=== PATIENT | female | born 1950 | race Caucasian/White ===

== ENCOUNTER → 2017-02-17 | Outpatient (CLI) | payer OTHER ==
[~2017-02-17] MED LIST: ESTR0.3T PO; RISP2TAB22 PO
--- NOTE | 2017-02-17 16:06 | MAMMOGRAPHY REPORT ---
BILATERAL DIGITAL SCREENING MAMMOGRAM WITH CAD: 02/17/2017 TECHNIQUE: Current study was also evaluated with a Computer Aided Detection (CAD) system. Bilatera l CC and MLO views were obtained. COMPARISON: Comparison is made to exams dated: 02/12/2016 mammogram, 02/06/2015 mammogram, 01/24/2014 ma mmogram, 01/17/2014 mammogram, 01/11/2013 mammogram, and 01/06/2012 mammogram - [facility] nter. BREAST COMPOSITION: The tissue of both breasts is extremely dense, which lowers the sensitivity of mammography. FINDINGS: No suspicious masses, calcifications, or areas of architectural distortion are noted in e ither breast. There has been no significant interval change compared to prior exams. Bilateral mya gn-appearing calcifications are not significantly changed. IMPRESSION: ACR BI-RADS CATEGORY 2: BENIGN There is no mammographic evidence of malignancy. A 1 year screening mammogram is recommended. The p atient will receive written notification of the results. Approximately 10% of breast cancers are not detected with mammography. A negative mammographic repor t should not delay biopsy if a clinically suggestive mass is present. Liz Boo M.D. ah/:02/17/2017 15:54:09 Miniature Train Driver: Roxie REIS(Parmjit)(M), [facility] letter sent: Normal 1/2 BI-RADS Code: ACR BI-RADS Category 2: Benign
== END | disposition home or self-care (01) ==
LOC: C.MAMM 09:00
PROVIDERS: ATTEND Physician Assistant
DX: Z12.31 Encounter for screening mammogram for malignant neoplasm of breast (principal)

== ENCOUNTER → 2018-02-21 | Outpatient (CLI) | payer OTHER ==
--- NOTE | 2018-02-22 07:45 | MAMMOGRAPHY REPORT ---
BILATERAL DIGITAL SCREENING MAMMOGRAM TOMOSYNTHESIS WITH CAD: 02/21/2018 CLINICAL HISTORY: Routine screening. Patient has no complaints. TECHNIQUE: Breast tomosynthesis in addition to standard 2D mammography was performed. Current study was also evaluated with a Computer Aided Detection (CAD) system. COMPARISON: Comparison is made to exams dated: 02/17/2017 mammogram, 02/12/2016 mammogram, 02/06/2015 nina mogram, 01/24/2014 mammogram, 01/24/2014 ultrasound, and 01/17/2014 mammogram - [facility] nter. BREAST COMPOSITION: The tissue of both breasts is extremely dense, which lowers the sensitivity of m ammography. FINDINGS: There are possible faint clusters of microcalcifications in the medial right breast, for w hich additional spot magnification views are recommended. No suspicious masses, areas of architectural distortion or asymmetries are identified bilaterally. IMPRESSION: ACR BI-RADS CATEGORY 0: INCOMPLETE EVALUATION: NEED ADDITIONAL IMAGING EVALUATION The possible faint clusters of microcalcifications in the medial right breast need additional evaluat ion. The patient will be called to schedule an appointment. Approximately 10% of breast cancers are not detected with mammography. A negative mammographic report should not delay biopsy if a clinically suggestive mass is present. Rose Marie Colunga M.D. ay/:02/21/2018 16:05:49 Forest Fire Prevention Specialist: Yodit REIS(Parmjit)(Gregg), [facility] letter sent: Addl Imaging 0 BI-RADS Code: ACR BI-RADS Category 0: Incomplete Evaluation: Need Additional Imaging Evaluation
== END | disposition home or self-care (01) ==
LOC: C.MAMM 08:32
PROVIDERS: ATTEND Family Medicine
DX: Z12.31 Encounter for screening mammogram for malignant neoplasm of breast (principal); R92.0 Mammographic microcalcification found on diagnostic imaging of breast

== ENCOUNTER → 2018-03-03 | Outpatient (CLI) | payer OTHER ==
--- NOTE | 2018-03-03 14:45 | MAMMOGRAPHY REPORT ---
UNILATERAL RIGHT DIGITAL DIAGNOSTIC MAMMOGRAM: 03/03/2018 CLINICAL HISTORY: Callback from screening mammogram for right breast calcifications. TECHNIQUE: Spot magnification right cc and ML views were obtained. COMPARISON: Comparison is made to exams dated: 02/21/2018 mammogram, 02/17/2017 mammogram, 02/12/2016 ma mmogram, 02/06/2015 mammogram, 01/24/2014 mammogram, and 01/24/2014 ultrasound - [facility]ter. BREAST COMPOSITION: The tissue of the right breast is extremely dense, which lowers the sensitivity of mammography. FINDINGS: Spot magnification views of the right breast demonstrate an 8 mm group of faint punctate an d amorphous calcifications in the right upper inner quadrant, best seen on the cc view. The calcific ations were not clearly evident on prior exams and are therefore indeterminant. A possible smaller 3 mm cluster of similar appearing calcifications is seen slightly more medially on the cc view which m ay project superiorly on the MLO view. There is also a small 2 mm cluster of punctate benign-appeari ng calcifications within the right medial anterior breast at approximately 3:00, which are not signif icantly changed compared to multiple prior exams including the 2013 exam when accounting for technica l differences and are therefore likely benign. IMPRESSION: ACR BI-RADS CATEGORY 4: SUSPICIOUS 1. Grouped faint calcifications within the right upper inner quadrant are indeterminate and stereota ctic biopsy is recommended for further evaluation. 2. Pending benign pathology results, recommend follow-up diagnostic mammograms of the right breast i n 6 months to confirm stability of another possible smaller faint similar-appearing cluster more medi ally in the right breast and stable cluster of calcifications in the right 3:00 anterior breast. A phone call was made to the physician's office to confirm faxed results were received. The patient has been verbally notified of the results. She tentatively scheduled the biopsy [facility]. Approximately 10% of breast cancers are not detected with mammography. A negative mammographic report should not delay biopsy if a clinically suggestive mass is present. Liz Boo M.D. /:03/03/2018 08:49:33 Studio Artist: Yodit REIS(Parmjit)(Gregg), [facility] letter sent: Abnormal 4/5 BI-RADS Code: ACR BI-RADS Category 4: Suspicious
== END | disposition home or self-care (01) ==
LOC: C.MAMM 08:14
PROVIDERS: ATTEND Physician Assistant
DX: R92.1 Mammographic calcification found on diagnostic imaging of breast (principal)

== ENCOUNTER → 2018-03-23 | Outpatient (CLI) | payer OTHER ==
[~2018-03-23] MED LIST changes: +CYCL10TA6 PO; +PRM625 PO; +PROP80TA2 PO; +RIZA10TA18 PO
--- NOTE | 2018-03-23 08:35 | Discharge Instructions ---
Discharge Instructions Procedure Procedure Date: March 23, 2018. Reason for visit: Right Calcifications. Discharge Discharge Date: March 23, 2018. Discharge Diagnosis: post right breast stereotactic guided biopsy Instructions Activity Recommendations: Additional Limitations (see below) Return to School/Work: no limitations Recommended Home Diet: No Limitations Provider Instructions: ACTIVITY RECOMMENDATIONS: * No lifting, pushing, pulling or exercising the affected side for three days. RETURN TO SCHOOL/WORK: * You may return to work/school after the procedure, but do not perform any strenuous activities for 24 to 48 hours. MEDICATIONS: * Tylenol (two 325 mg) every four to six hours if needed for mild pain (if not allergic to Tylenol). DIET: * Resume previous diet. SPECIAL CARE INSTRUCTIONS: * Keep biopsy site dry for 24 hours. May shower after 24 hours, but do not soak (bathe) incision. * May remove Tegaderm (plastic patch) tomorrow AFTER showering. * Leave the steri-strips on for one week. Allow the steri-strips to fall off by themselves. If not off after one week, you may remove them. You may place a Bandaid crosswise over the strips, if desired. * Apply ice 10 minutes on and 10 minutes off as needed. * Wear a bra at bedtime to sleep more comfortably for 2-3 days. * Your referring physician should have the results after approximately 5 to 7 business days. * Call for unusual bleeding, fever, drainage, etc or if you have any questions call [phone] during normal business hours or after hours call Dr Colunga, . FOLLOW UP VISIT: Follow-up with Referring Physician as scheduled. Allergies Coded Allergies: No Known Allergies (Unverified , 12/23/11) Logan Garcia Recommendations: Call your doctor if: * Temperature above 101 degrees * Pain not relieved by pain medicine ordered * There is increased drainage or redness from any incision * You have any unanswered questions or concerns. Your Doctors Instructions noted above were prepared by provider Rose Marie Colunga. Patient Signature Section: Patient Instructions Signature Page Izabel Wilson Patient (or Guardian) Signature/Date: I have read and understand the instructions given to me by my caregivers. Caregiver/RN/Doctor Signature/Date: The above-named patient and/or guardian has received patient instructions on this date. + Original Patient Signature Page (only) stays with chart. Please make copy for patient.
--- NOTE | 2018-03-23 15:22 | MAMMOGRAPHY REPORT ---
STEREOTACTIC GUIDED BIOPSY RIGHT BREAST: 03/23/2018 CLINICAL HISTORY: Indeterminate 8 mm cluster of punctate and amorphous microcalcifications in the med ial right breast. Patient presents for stereotactic guided biopsy. COMPARISON: Comparison is made to exams dated: 03/03/2018 mammogram, 02/21/2018 mammogram, 02/17/2017 m ammogram, 02/12/2016 mammogram, 02/06/2015 mammogram, and 01/24/2014 mammogram - [facility]. PATIENT CONSENT: After explaining the risks, benefits and alternatives of the procedure to the patien t, informed consent was obtained both verbally and in writing. Specific risks include: Bleeding, inf ection, puncture of adjacent structure, pain, nontarget biopsy, sampling error, metal allergy and med ication reaction. PROCEDURE DESCRIPTION: A time-out was performed and the right breast was confirmed as the site of bio psy. The patient was placed prone on the stereotactic biopsy table and the breast was placed in CC fr om above compression. A data systems analyst image was obtained that demonstrated the clustered microcalcifications in question. They are amenable to sterotactic biopsy. Then +15 and -15 stereo pair images were obt ained. The calcifications were targeted utilizing the coordinates obtained by the computer. The skin was prepped with Betadine. 1% Lidocaine with and without epinipherine was administered as local anes thesia. A small skin incision was made. Through the incision, the needle was inserted to the depth d etermined by the computer. 12 samples were obtained using a [employer] 9-gauge vacuum-assisted biops y device. The specimen radiograph demonstrated several architectural representative microcalcifications, therefore, a metallic marker was placed at the biopsy site. There was no immediate complication. Hemostasis was achieved after several minutes of manual compression. The samples were sent to pathology in two jacklyn ropriately labeled containers, "with calcifications" and "without calcifications". All of the samples were obtained from the same single biopsy site. Postprocedure CC and ML chrystal views of the right breast were obtained. There is a new dumbbell-shape d biopsy marker clip and 2 cm diameter hematoma at the site of the biopsy in the upper inner middle o ne third of the right breast, at the site of the biopsied clustered calcifications. IMPRESSION: STEREOTACTIC GUIDED BIOPSY Status post right breast stereotactic guided biopsy of faint clustered amorphous and punctate microca lcifications in the upper inner middle one third of the right breast, with biopsy marker clip placed at the site. Pending benign pathology results, a follow-up right mammogram is recommended in [address] ability of other smaller non-biopsied microcalcifications also in the right breast. The patient will receive notification of the biopsy results from her referring physician. Rose Marie Colunga M.D. ay/:03/23/2018 08:54:23 Wire Drawing Machine Tender: Roxie Garcia, [facility]
--- NOTE | 2018-03-23 15:26 | MAMMOGRAPHY REPORT ---
UNILATERAL RIGHT DIGITAL DIAGNOSTIC MAMMOGRAM TOMOSYNTHESIS: 03/23/2018 CLINICAL HISTORY: Status post right breast stereotactic guided biopsy of a faint 8 mm grouping of pun ctate/amorphous microcalcifications in the medial breast. Please refer the report from right breast stereotactic guided biopsy performed at the same time for f ull detail. IMPRESSION: POST PROCEDURE IMAGING FOR MARKER PLACEMENT Please refer the report from right breast stereotactic guided biopsy performed at the same time for f ull detail. Approximately 10% of breast cancers are not detected with mammography. A negative mammographic report should not delay biopsy if a clinically suggestive mass is present. Rose Marie Colunga M.D. ay/:03/23/2018 08:34:09 Money Order Clerk: Roxie Garcia, [facility] BI-RADS Code: Post Procedure Imaging For Marker Placement
== END | disposition home or self-care (01) ==
LOC: C.MAMM 07:53
PROVIDERS: ATTEND Physician Assistant
DX: R92.0 Mammographic microcalcification found on diagnostic imaging of breast (principal)

== ENCOUNTER 2018-03-24 00:04 | Emergency (ER) | payer OTHER ==
[~2018-03-24] VITALS: Ht 154.9 cm; Wt 69.0 kg
[~2018-03-24 00:04] MED LIST changes: -CYCL10TA6 PO; -PRM625 PO; -PROP80TA2 PO; -RIZA10TA18 PO
[2018-03-24 00:13] VITALS: TEMP 36.5; Ht 154.9 cm; Wt 69.0 kg
--- NOTE | 2018-03-24 00:40 | EMERGENCY ROOM VISIT NOTE ---
History Report prepared by Yogi: Keshav Sanabria Under the Supervision of: Dr. Rachel Ferraro D.O. First contact with patient: 00:19 Chief Complaint: SHOULDER PAIN Stated Complaint: LFT SHOULDER AND NECK PAIN,DISLOCATED?,CAN'T SLEEP History of Present Illness The patient is a 67 year old female who presents to the Emergency Room with complaints of persistent left neck pain radiating to her left shoulder for three days. She notes that she was carrying a bucket of fertilizer a couple of days ago when this started. She notes that she felt bad three days ago and was seen by her chiropractor two days ago. She notes that she felt better immediately after her chiropractor adjusted her, though by the time she got to her car her pain returned and worsened throughout the day. She notes that she cannot sleep. She notes sitting in an upright position worsens her pain. She states that she took two Tylenol yesterday. She had a biopsy performed on her right breast this morning. She has not taken any pain medication today. She denies any blood thinner use. Source of History: patient Onset: three days ago Position: neck (left ) Quality: other (radiating to her left shoulder) Timing: other (persistent) Modifying Factors (Worsening): other (sitting) Note: Notes loss of sleep. Review of Systems See HPI for pertinent positives & negatives. A total of 10 systems reviewed and were otherwise negative. Past Medical & Surgical Surgical Problems: (1) H/O right breast biopsy (2) H/O right knee surgery (3) H/O: hysterectomy (4) S/P foot surgery, left Family History Cancer Social History Smoking Status: Never Smoker Smokeless Tobacco Use: No Alcohol Use: none Drug Use: none Marital Status: Housing Status: lives with significant other Occupation Status: unemployed Current/Historical Medications Scheduled Cyclobenzaprine Hcl (Flexeril), 10 MG PO TID Estrogens, Conjugated (Premarin), 0.625 MG PO DAILY Propranolol (Inderal), 40 MG PO BID Risperidone (Risperdal), 2 MG PO QPM Rizatriptan Benzoate (Maxalt), 10 MG PO PRN/UD Allergies Coded Allergies: No Known Allergies (Unverified , 12/23/11) Physical Exam Vital Signs Date Time Temp Pulse Resp B/P (MAP) Pulse Ox O2 Delivery O2 Flow Rate FiO2 03/24/18 02:02 82 16 168/94 98 03/24/18 00:13 36.5 68 20 164/97 96 Room Air Physical Exam HEENT: Head - normocephalic and atraumatic Pupils are equal, round, and reactive to light. Extraocular eye muscles are intact, and sclera are anicteric. Nose - moist nasal mucosa without discharge. Mouth - moist buccal mucosa. Oropharynx is nonerythematous and there is no tonsillar exudate or edema noted. Neck: Supple; no JVD, nuchal rigidity, cervical lymphadenopathy. Significant muscle spasm of left cervical paraspinous muscles Heart: Regular rate and rhythm. There is a normal S1 and S2 with no murmurs, clicks, or gallops appreciated. Lungs: Clear to auscultation bilaterally with no wheezes, rales, or rhonchi. Abdomen: Soft, completely nontender, nondistended, with good bowel sounds. There are no palpable pulsatile masses or hepatosplenomegaly. There is no guarding, rigidity, or rebound noted. Extremities: No evidence of cyanosis, clubbing, or edema. There are easily palpable peripheral pulses. Significant muscle spasm of the entire left trapezius muscle. Skin: warm and dry with good turgor. psoriasis along hairline near occiput. Medical Decision & Procedures Medications Administered Medications (Trade) Dose Ordered Sig/Jr Route Start Time Stop Time Status Last Admin Dose Admin Ketorolac Tromethamine (Toradol Inj) 60 mg NOW STAT IM 03/24/18 00:46 03/24/18 00:47 DC 03/24/18 00:53 60 MG Cyclobenzaprine HCl (Flexeril Tab) 10 mg NOW STAT PO 03/24/18 00:46 03/24/18 00:47 DC 03/24/18 00:52 10 MG Procedure 0046: Ordered Flexeril 10 mg PO and Toradol 60 mg IM ED Course 0026: Past medical records reviewed. The patient was evaluated in room A11B. A complete history and physical exam was performed. 0046: Ordered Flexeril 10 mg PO and Toradol 60 mg IM 0124: I reassessed the patient at this time. She notes her pain is significantly relieved. 0147: I reassessed the patient at this time. She is feeling better and resting comfortably. I discussed the results and treatment plan with the patient. I answered all pertaining questions that she had. She expressed understanding and verbalized agreement. The patient will be discharged home. Medical Decision The patient is a 67 year old female who presents to the ED with neck pain. Differential diagnosis includes muscle spasm of trapezius muscle, cervical dysfunction, tendonitis in shoulder, and shoulder separation. This is a 67-year-old female patient presents to the emergency department with left-sided shoulder pain and neck pain. The patient has obvious significant muscle spasm of the trapezius muscle on the left. The patient has range of motion in that shoulder and therefore I do not suspect a dislocation. The patient does not have a mechanism for a shoulder separation. I have encouraged the patient to use NSAIDs at home for pain and I will prescribe Flexeril. She is to follow-up with her PCP if the symptoms persist. Medication Reconcilliation Current Medication List: was personally reviewed by me Blood Pressure Screening Patient's blood pressure: Elevated blood pressure Blood pressure disposition: Elevated BP felt to be situational Impression Primary Impression: Strain of left trapezius muscle Scribe Attestation The scribe's documentation has been prepared under my direction and personally reviewed by me in its entirety. I confirm that the note above accurately reflects all work, treatment, procedures, and medical decision making performed by me. Departure Information Dispostion Home / Self-Care Prescriptions Cyclobenzaprine Hcl (FLEXERIL) 10 Mg Tab 10 MG PO TID, #21 TAB Prov: Rachel Ferraro D.O. 03/24/18 Referrals Matthew Hampton M.D. (PCP) Forms HOME CARE DOCUMENTATION FORM, IMPORTANT VISIT INFORMATION Patient Instructions Muscle Spasm, Muscles Neck, My [facility] Additional Instructions Rest Take motrin - 600mg every 6 hours with food for pain Flexeril - 1 tab. every 8 hours Apply heat to the left shoulder You cannot drive while taking the muscle relaxant Problem Qualifiers Primary Impression: Strain of left trapezius muscle Encounter type: initial encounter Qualified Codes: S46.812A - Strain of other muscles, fascia and tendons at shoulder and upper arm level, left arm, initial encounter
[2018-03-24] MEDS ORDERED: CYCLOBENZAPRINE HCL 10 MG TAB PO STA (00:46)
[2018-03-24] MEDS ORDERED: KETOROLAC TROMETHAMINE 60 MG/2 ML VIAL IM STA (00:46)
[2018-03-24] MEDS ORDERED: PRM625 PO (01:38)
[2018-03-24] MEDS ORDERED: PROP80TA2 PO (01:40)
[2018-03-24] MEDS ORDERED: RIZA10TA18 PO (01:41)
[2018-03-24] MEDS ORDERED: CYCL10TA6 PO (01:55)
[2018-03-24 02:02] VITALS: BP 168/94; PULSE 82; O2SAT 98
== END 2018-03-24 02:03 | disposition home or self-care (01) ==
LOC: C.EDB 00:06 → C.EDA 02:03
DX: S46.812A Strain of other muscles, fascia and tendons at shoulder and upper arm level, left arm, initial encounter (principal); X50.0XXA Overexertion from strenuous movement or load, initial encounter; Z79.899 Other long term (current) drug therapy

== ENCOUNTER 2021-04-21 05:03 | Observation (INO) ==
[2021-04-21 05:34] LABS: Basophils # (auto) 0.02 K/uL (0-0.2); Basophils % (auto) 0.2 %; Eosinophils # (auto) 0.04 K/uL (0-0.5); Eosinophils % (auto) 0.5 %; Hematocrit (blood only) 38.8 % (37-47); Hemoglobin 13.4 g/dL (12.0-16.0); Immature Granulocytes # (auto) 0.01 K/uL (0.00-0.02); Immature Granulocytes % (auto) 0.1 %; Lymphocytes # (auto) 3.28 K/uL (1.2-3.4); Lymphocytes % (auto) 40.9 %; Mean Corpuscular Hemoglobin 33.3 pg (25-34); Mean Corpuscular Hgb Conc 34.5 g/dL (32-36); Mean Corpuscular Volume 96.5 fL (80-100); Mean Platelet Volume 9.8 fL (7.4-10.4); Monocytes # (auto) 0.65 K/uL (0.11-0.59); Monocytes % (auto) 8.1 %; Neutrophils # (auto) 4.02 K/uL (1.4-6.5); Neutrophils % (auto) 50.2 %; Platelet Count 191 K/uL (130-400); RDW Coefficient of Variation 12.2 % (11.5-14.5); RDW Standard Deviation 43.2 fL (36.4-46.3); Red Blood Count 4.02 M/uL (4.2-5.4); White Blood Count 8.02 K/uL (4.8-10.8)
[2021-04-21 05:44] LABS: Partial Thromboplastin Time 25.5 Seconds (21.0-31.0)
[2021-04-21 06:09] LABS: Alanine Aminotransferase 76 U/L (12-78); Albumin Globulin Ratio 0.9 (0.9-2); Albumin Level 3.3 gm/dl (3.4-5.0); Alkaline Phosphatase 82 U/L (45-117); Aspartate Aminotransferase 136 U/L (15-37); BUN Creatinine Ratio 23.7 (10-20); Bilirubin,Total 0.5 mg/dl (0.2-1); Blood Urea Nitrogen 18 mg/dl (7-18); Calcium 8.7 mg/dl (8.5-10.1); Carbon Dioxide 29 mmol/L (21-32); Chloride 105 mmol/L (98-107); Creatinine Clr Calc Pharmacy 63.5 ml/min; Est GFR (African American) 94.3 ml/min; Est GFR (Non-African American) 81.3 ml/min; Globulin 3.8 gm/dl (2.5-4.0); Glucose 99 mg/dl (70-99); Lipase 80 U/L (73-393); Potassium 4.4 mmol/L (3.5-5.1); Sodium 140 mmol/L (136-145); Total Protein 7.1 gm/dl (6.4-8.2); Troponin I < 0.015 ng/ml (0-0.045)
--- NOTE | 2021-04-21 06:40 | Ultrasound Report ---
US gallbladder CLINICAL HISTORY: Right upper quadrant abdominal pain. COMPARISON STUDY: No previous studies for comparison. FINDINGS: There is coarsening of hepatic echotexture. No hepatic lesions are identified. There is mil d intra and extrahepatic biliary ductal dilatation. The common bile duct measures 9 mm in caliber. Th ere are gallstones within the gallbladder. Gallbladder is distended. Sonographic Andrews sign could no t be assessed in this patient. Gallbladder wall is slightly thickened with possible gallbladder wall edema. Echogenic foci with comet tail artifact within the gallbladder wall suggests adenomyomatosis. Pancreas is obscured. There is no right hydronephrosis. IMPRESSION: 1. Cholelithiasis, mild gallbladder distention and mild gallbladder wall thickening. Acute cholecysti tis cannot be excluded. A hepatobiliary scan could be obtained if indicated. 2. Mild intra and extrahepatic biliary ductal dilatation. Correlation with liver function tests is re commended. 3. Coarsening of hepatic echotexture which raises the possibility of diffuse liver disease. ACT 112: Negative or not required by law. Electronically signed by: Alonzo Tijerina M.D. 04/21/2021 6:39 AM
--- NOTE | 2021-04-21 06:41 | XRay Report ---
XR chest 1V portable CLINICAL HISTORY: Chest Pain COMPARISON STUDY: Chest radiograph the 2009. FINDINGS: Lung volumes are normal. Lungs are clear. There is no pneumothorax or pleural effusion. Car diac size is normal. Mediastinal contours are normal. There is no evidence for pulmonary edema. IMPRESSION: No acute cardiopulmonary findings. ACT 112: Negative or not required by law. Electronically signed by: Alonzo Tijerina M.D. 04/21/2021 6:39 AM
[2021-04-21] MEDS ORDERED: SODIUM CHLORIDE 0.9% 500 ML IV SCH (08:00)
--- NOTE | 2021-04-21 08:04 | Emergency Department Note ---
Impression & Plan Epigastric abdominal pain ED Provider Note NAME: CORINE OLIVARES AGE: 70 SEX: F ARRIVES VIA: Walk-In INFORMANT: Patient ED PROVIDER(S): Rachel Ferraro DO CHIEF COMPLAINT: Abdominal pain PLAN: Disposition: Evaluation for inpatient care by the [facility] service Condition: Stable MEDICAL DECISION MAKING: This is a 70-year-old female patient who presents to the emergency department with epigastric abdominal pain. Laboratory studies were unremarkable. Right upper quadrant ultrasound shows gallbladder wall thickening and some concerns for possible acute cholecystitis. Patient symptoms have resolved but the ultrasound is questionably concerning for acute cholecystitis. Her symptoms seem to wax and wane. I discussed the case with the [facility] service and they will evaluate the patient for further inpatient care and order a HIDA scan. Triage Nursing notes reviewed and agree with them. Vital Signs: reviewed and remarkable for hypertension Differential diagnosis: Pancreatitis, cholecystitis, GERD, aortic dissection, ulcerative disease Diagnostics interpreted by me: ECG: Sinus bradycardia at [address] segment elevation or signs of ischemia. QTC was 416 ms. Cardiac Monitoring: Normal sinus rhythm at a rate of 72 Laboratory studies: See below Imaging studies: As per my interpretation Portable chest x-ray: No acute pulmonary infiltrates or consolidation Right upper quadrant ultrasound: See below HPI: 70/F arrives for evaluation of epigastric abdominal pain. Between 11 PM and midnight, the patient developed some chest discomfort and epigastric abdom inal pain. She initially noticed that she had had a headache earlier in the evening but quickly developed this epigastric abdominal pain. She tried to have a bowel movement but this seemed to make the epigastric pain and right upper quadrant abdominal pain worse. She describes the pain is fairly intense and severe but then she tried to go to sleep. Around 4 AM she noticed the pain again but it was much less severe. Because the pain was still present, she decided to come in for evaluation. Patient denies ever having pain like this in the past. She does describe some associated nausea. ROS: See above HPI for pertinent positives & negatives. A total of 10 systems reviewed and were otherwise negative. PAST MEDICAL HISTORY:None PAST SURGICAL HISTORY:Hysterectomy; multiple orthopedic surgeries FAMILY HISTORY:See Below SOCIAL HISTORY:See Below HOME MEDICATIONS:See list ALLERGIES:None VITALS:See Below PHYSICAL EXAMINATION: HEENT: Head - normocephalic and atraumatic Pupils are equal, round, and reactive to light. Extraocular eye muscles are intact, and sclera are anicteric. Nose - moist nasal mucosa without discharge. Mouth - moist buccal mucosa. Oropharynx is nonerythematous and there is no tonsillar exudate or edema noted. Neck: Supple; no JVD, nuchal rigidity, cervical lymphadenopathy, or auscultated bruits. Heart: Regular rate and rhythm. There is a normal S1 and S2 with no murmurs, clicks, or gallops appreciated. Lungs: Clear to auscultation bilaterally with no wheezes, rales, or rhonchi. Abdomen: Moderate tenderness to palpation in the epigastrium. There were normal bowel sounds. There is no guarding or rigidity noted. Extremities: No evidence of cyanosis, clubbing, or edema. There are easily palpable peripheral pulses. Skin: warm and dry with good turgor and no rashes. ED COURSE: Times/Reassessments: 0530: The patient was evaluated in room A 12. A complete history and physical was performed. An order was placed for continuous cardiac monitoring. The patient was in a normal sinus rhythm at a rate of 72. An IV lock was initiated and labs were drawn as above. A twelve-lead EKG was obtained as described above. The patient declined wanting any pain medications at this time. She will go for ultrasound of the right upper quadrant to evaluate her gallbladder. Ultrasound was performed and was concerning for gallbladder wall thickening. They recommended a HIDA scan. The patient remains comfortable at this time but her symptoms do wax and wane at times. [facility] will evaluate for further inpatient management and order the HIDA scan. Covid testing was ordered. The patient was placed on a normal saline drip. Rachel Ferraro DO Past Med/Surg History Medical History Migraines Paranoid schizophrenia Surgical History H/O right breast biopsy H/O right knee surgery H/O: hysterectomy S/P foot surgery, left Family History Sister Colorectal cancer Father Pancreatic cancer Social History (Updated 04/21/21 @ 09:20 by DEBORAH Adams) Smoking Status: Never smoker Hx Alcohol Use: No Hx Substance Use: No Preferred Language: Mauritanian Communication Ability: Effective Automatic Packer Operator Required: No Beliefs That Will Affect Care: None Current Living Situation: Spouse Other Information That Helps Us Care for You: No Feels Safe at Home: Yes Safety Concerns: Feels Safe At This Time Assistive Devices: Glasses Allergies Allergies Allergy/AdvReac Type Severity Reaction Status Date / Time No Known Allergies Verified 04/21/21 07:30 Home Meds Home Medications Medication Instructions Recorded Confirmed propranolol 40 mg tablet 40 mg PO BID 09/28/19 04/21/21 risperidone 2 mg tablet 2 mg PO DAILY 09/28/19 04/21/21 rizatriptan 10 mg tablet 10 mg PO Q2H PRN 09/28/19 04/21/21 conjugated estrogens [Premarin] 0.15 mg PO DAILY 04/21/21 04/21/21 Results & Data (ED) Vital Signs Vital Signs - 24 hr 04/21/21 05:11 04/21/21 05:23 04/21/21 05:24 Temperature 37.1 C Temperature Source Temporal Artery Scan Pulse Rate 63 56 L Pulse Rate from SpO2 Sensor Respiratory Rate 18 20 Respiratory Effort / Characteristics Non-Labored Spontaneous Respiratory Depth Normal Respiratory Pattern Regular Blood Pressure 166/92 H 173/86 H Blood Pressure Mean 116 115 Blood Pressure Position Sitting Pulse Oximetry 98 97 98 Oxygen Delivery Method Room Air Room Air Room Air Sepsis Recent Fever Within 48 Hours No Sepsis New/Unexplained Change in Mental Status No Sepsis Action Taken by Nursing No Action Required 04/21/21 05:31 04/21/21 05:37 04/21/21 07:01 Temperature Temperature Source Pulse Rate 56 L 53 L Pulse Rate from SpO2 Sensor 57 L 53 L Respiratory Rate 21 20 Respiratory Effort / Characteristics Respiratory Depth Respiratory Pattern Blood Pressure 162/83 H 189/96 H Blood Pressure Mean 109 127 Blood Pressure Position Pulse Oximetry 97 97 95 Oxygen Delivery Method Room Air Room Air Sepsis Recent Fever Within 48 Hours Sepsis New/Unexplained Change in Mental Status Sepsis Action Taken by Nursing 04/21/21 07:31 04/21/21 08:01 Temperature Temperature Source Pulse Rate 70 65 Pulse Rate from SpO2 Sensor 69 64 Respiratory Rate 17 17 Respiratory Effort / Characteristics Respiratory Depth Respiratory Pattern Blood Pressure 136/86 Blood Pressure Mean 102 Blood Pressure Position Pulse Oximetry 96 98 Oxygen Delivery Method Sepsis Recent Fever Within 48 Hours Sepsis New/Unexplained Change in Mental Status Sepsis Action Taken by Nursing Laboratory Data Result diagrams: 04/21/21 05:24 04/21/21 05:24 Lab Results 04/21/21 04/21/21 04/21/21 Range/Units 05:24 05:24 05:24 WBC 8.02 (4.8-10.8) K/uL RBC 4.02 L (4.2-5.4) M/uL Hgb 13.4 (12.0-16.0) g/dL Hct 38.8 (37-47) % MCV 96.5 (80-100) fL MCH 33.3 (25-34) pg MCHC 34.5 (32-36) g/dL RDW Std Deviation 43.2 (36.4-46.3) fL RDW Coeff of Margot 12.2 (11.5-14.5) % Plt Count 191 (130-400) K/uL MPV 9.8 (7.4-10.4) fL Immature Gran % (Auto) 0.1 % Neut % (Auto) 50.2 % Lymph % (Auto) 40.9 % [place] % (Auto) 8.1 % Eos % (Auto) 0.5 % Baso % (Auto) 0.2 % Neut # (Auto) 4.02 (1.4-6.5) K/uL Lymph # (Auto) 3.28 (1.2-3.4) K/uL [place] # (Auto) 0.65 H (0.11-0.59) K/uL Eos # (Auto) 0.04 (0-0.5) K/uL Baso # (Auto) 0.02 (0-0.2) K/uL Immature Gran # (Auto) 0.01 (0.00-0.02) K/uL APTT 25.5 (21.0-31.0) Seconds PTT Ratio 1.0 Sodium 140 (136-145) mmol/L Potassium 4.4 (3.5-5.1) mmol/L Chloride 105 (98-107) mmol/L Carbon Dioxide 29 (21-32) mmol/L Anion Gap 6.0 (3-11) BUN 18 (7-18) mg/dl Creatinine 0.75 (0.6-1.2) mg/dl Est Cr Clr Drug Dosing 63.5 ml/min Est GFR ( Amer) 94.3 ml/min Est GFR (Non-Af Amer) 81.3 ml/min BUN/Creatinine Ratio 23.7 H (10-20) Glucose 99 (70-99) mg/dl Calcium 8.7 (8.5-10.1) mg/dl Total Bilirubin 0.5 (0.2-1) mg/dl AST 136 H (15-37) U/L ALT 76 (12-78) U/L Alkaline Phosphatase 82 (45-117) U/L Troponin I < 0.015 (0-0.045) ng/ml Total Protein 7.1 (6.4-8.2) gm/dl Albumin 3.3 L (3.4-5.0) gm/dl Globulin 3.8 (2.5-4.0) gm/dl Albumin/Globulin Ratio 0.9 (0.9-2) Lipase 80 (73-393) U/L Specimen Hemolysis Administered Medications Carbamide Peroxide (Carbamide Peroxide 6.5% 15 Ml Btl) 5 drops OT BID PRN PRN Reason: Ear wax Stop: 04/24/21 11:53 Last Admin: 04/21/21 12:58 Dose: 5 drops Documented by: [id number] Dextrose/Sodium Chloride (D5w And Nss) 1,000 mls @ 125 mls/hr IV .Q8H MEGHAN Stop: 05/21/21 11:26 Last Infusion: 04/21/21 15:49 Dose: 125 mls/hr Documented by: [id number] Infusion: 04/21/21 14:49 Dose: 0 mls/hr Documented by: [id number] Admin: 04/21/21 12:46 Dose: 125 mls/hr Documented by: [id number] Cefoxitin Sodium 2,000 mg/ (Dextrose) 60 mls @ 100 mls/hr IV Q6H MEGHAN Stop: 05/01/21 12:14 Last Infusion: 04/21/21 19:06 Dose: 0 mls/hr Documented by: [id number] Admin: 04/21/21 18:30 Dose: 100 mls/hr Documented by: [id number] Infusion: 04/21/21 13:26 Dose: 0 mls/hr Documented by: [id number] Admin: 04/21/21 12:50 Dose: 100 mls/hr Documented by: [id number] Metronidazole (Flagyl) 500 mg in 100 mls @ 100 mls/hr IV Q8H MEGHAN Stop: 05/01/21 13:59 Last Infusion: 04/21/21 15:49 Dose: 0 mls/hr Documented by: [id number] Admin: 04/21/21 14:49 Dose: 100 mls/hr Documented by: [id number] Propranolol HCl (Propranolol Hcl 20 Mg Tab) 40 mg PO BID MEGHAN Stop: 05/21/21 11:26 Last Admin: 04/21/21 12:52 Dose: 40 mg Documented by: [id number] Risperidone (Risperidone 2 Mg Tablet) 2 mg PO DAILY MEGHAN Stop: 05/21/21 11:26 Last Admin: 04/21/21 12:52 Dose: 2 mg Documented by: [id number] Discontinued Medications Sodium Chloride (Nss) 500 mls @ 125 mls/hr IV .Q4H MEGHAN Stop: 05/21/21 07:59 Last Infusion: 04/21/21 11:28 Dose: 0 mls/hr Documented by: [id number] Admin: 04/21/21 08:15 Dose: 125 mls/hr Documented by: [id number] Imaging Data Radiologist's Impression: Chest X-Ray 04/21/21 05:28 XR chest 1V portable CLINICAL HISTORY: Chest Pain COMPARISON STUDY: Chest radiograph the 2009. FINDINGS: Lung volumes are normal. Lungs are clear. There is no pneumothorax or pleural effusion. Cardiac size is normal. Mediastinal contours are normal. There is no evidence for pulmonary edema. IMPRESSION: No acute cardiopulmonary findings. ACT 112: Negative or not required by law. Electronically signed by: Alonzo Tijerina M.D. 04/21/2021 6:39 AM Gallbladder Ultrasound 04/21/21 05:43 US gallbladder CLINICAL HISTORY: Right upper quadrant abdominal pain. COMPARISON STUDY: No previous studies for comparison. FINDINGS: There is coarsening of hepatic echotexture. No hepatic lesions are identified. There is mild intra and extrahepatic biliary ductal dilatation. The common bile duct measures 9 mm in caliber. There are gallstones within the gallbladder. Gallbladder is distended. Sonographic Andrews sign could not be assessed in this patient. Gallbladder wall is slightly thickened with possible gallbladder wall edema. Echogenic foci with comet tail artifact within the gallbladder wall suggests adenomyomatosis. Pancreas is obscured. There is no right hydronephrosis. IMPRESSION: 1. Cholelithiasis, mild gallbladder distention and mild gallbladder wall thickening. Acute cholecystitis cannot be excluded. A hepatobiliary scan could be obtained if indicated. 2. Mild intra and extrahepatic biliary ductal dilatation. Correlation with liver function tests is recommended. 3. Coarsening of hepatic echotexture which raises the possibility of diffuse liver disease. ACT 112: Negative or not required by law. Electronically signed by: Alonzo Tijerina M.D. 04/21/2021 6:39 AM Discharge Plan Visit Data Chief Complaint: Chest Pain Stated Complaint: CHEST PAIN - UNDERNEATH BREAST TO WAIST ED Provider: Rachel Ferraro Discharge Problem: Epigastric abdominal pain Patient Disposition: Admitted As Inpatient Discharge Instructions Interventions: ED Discharge Assessment Last Done: 04/21/21 10:57
--- NOTE | 2021-04-21 09:23 | History & Physical Report ---
Date of Service April 21, 2021 Assessment & Plan (1) Biliary colic: -Admit to [facility] -Patient presenting from home with reports of epigastric pain that began last evening -In the ED, gallbladder ultrasound shows cholelithiasis, mild gallbladder distention and mild gallbladder wall thickening. Acute cholecystitis cannot be excluded, Mild intra and extrahepatic biliary ductal dilatation. -Afebrile, no leukocytosis. Mild elevation in AST at 136, normal lipase -HIDA scan ordered however due to scheduling, cannot be completed until tomorrow afternoon -MRCP due to biliary ductal dilatation and elevated AST -GI and general surgery consults (2) Paranoid schizophrenia: -Continue Risperdal (3) Migraines: -Continue propanolol (4) DVT prophylaxis: -SCDs for now History of Present Illness Chief Complaint: Epigastric pain Primary Care Provider: Matthew Hampton MD 70-year-old female with PMH migraines, paranoid schizophrenia, other problems listed below who presents to the ED for evaluation of epigastric pain. Patient reports she ate fried fish for dinner last evening around 7:00, and then around 1030 she developed a severe epigastric cramping. She reports pain radiated out to both sides of her abdomen. She took Pepto-Bismol which made her nauseous and she had vomiting after. Pain subsided however returned around 4 AM. Patient then presented to the ED for further evaluation. Patient reports having 2 normal bowel movements overnight. Denies diarrhea, bright red bleeding per rectum, dark tarry stools. No hematemesis or coffee-ground emesis. Denies fevers and chills. No chest pain or shortness of breath. Denies lightheadedness, dizziness, diaphoresis, syncopal events. No urinary symptoms. In the ED, gallbladder ultrasound shows cholelithiasis, mild gallbladder distention and mild gallbladder wall thickening. Acute cholecystitis cannot be excluded, Mild intra and extrahepatic biliary ductal dilatation. Patient is afebrile, no leukocytosis. AST 136. Patient was given IVF. She denies any discomfort currently. Allergies Allergy/AdvReac Type Severity Reaction Status Date / Time No Known Allergies Verified 04/21/21 07:30 Home Medications Medication Instructions Recorded Confirmed Type propranolol 40 mg tablet 40 mg PO BID 09/28/19 04/21/21 History risperidone 2 mg tablet 2 mg PO DAILY 09/28/19 04/21/21 History rizatriptan 10 mg tablet 10 mg PO Q2H PRN 09/28/19 04/21/21 History conjugated estrogens [Premarin] 0.15 mg PO DAILY 04/21/21 04/21/21 History Past Med/Surg History Medical History Migraines Paranoid schizophrenia Surgical History H/O right breast biopsy H/O right knee surgery H/O: hysterectomy S/P foot surgery, left Family History (Updated 04/21/21 @ 09:20 by DEBORAH Adams) Sister Colorectal cancer Father Pancreatic cancer Social History (Updated 04/21/21 @ 09:20 by DEBORAH Adams) Smoking Status: Never smoker Hx Alcohol Use: No Feels Safe at Home: Yes Review of Systems Review of Systems: ROS per HPI, all other systems reviewed and negative Physical Exam Constitutional: WD/WN, vitals as above Eyes: PERRL, conjunctivae normal, anicteric sclerae ENMT: external ear and nose normal, oropharynx normal Respiratory: normal respiratory effort, lungs clear to auscultation Cardiovascular: Rate/Rhythm: regular rate and regular rhythm Vessels: normal peripheral pulses Extremities: no edema Gastrointestinal (Abdomen): normal bowel sounds, soft, nontender, no hepatosplenomegaly Musculoskeletal: no cyanosis or clubbing, extremities motor strength 5/5 Skin: no rashes, warm and dry Neurologic: PERRL, EOMI, accommodation nl, no face palsy, no dysarthria Psychiatric: A+Ox3, euthymic affect Results & Data Results & Data ([facility]) Vital Signs (Past 12 Hours) Vital Signs Temp Pulse Resp BP Pulse Ox 04/21/21 08:01 65 17 136/86 98 04/21/21 07:31 70 17 96 04/21/21 07:01 53 L 20 189/96 H 95 04/21/21 05:37 97 04/21/21 05:31 56 L 21 162/83 H 97 04/21/21 05:24 98 04/21/21 05:23 56 L 20 173/86 H 97 04/21/21 05:11 37.1 C 63 18 166/92 H 98 Laboratory Results Short CBC 04/21/21 Range/Units 05:24 WBC 8.02 (4.8-10.8) K/uL Hgb 13.4 (12.0-16.0) g/dL Hct 38.8 (37-47) % Plt Count 191 (130-400) K/uL BMP 04/21/21 05:24 Sodium 140 Potassium 4.4 Chloride 105 Carbon Dioxide 29 BUN 18 Creatinine 0.75 Glucose 99 Calcium 8.7 Cardiac Enzymes 04/21/21 Range/Units 05:24 Troponin I < 0.015 (0-0.045) ng/ml Liver Function 04/21/21 Range/Units 05:24 Total Bilirubin 0.5 (0.2-1) mg/dl AST 136 H (15-37) U/L ALT 76 (12-78) U/L Alkaline Phosphatase 82 (45-117) U/L Albumin 3.3 L (3.4-5.0) gm/dl Diagnostic Findings Chest X-Ray 04/21/21 05:28 XR chest 1V portable CLINICAL HISTORY: Chest Pain COMPARISON STUDY: Chest radiograph the 2009. FINDINGS: Lung volumes are normal. Lungs are clear. There is no pneumothorax or pleural effusion. Cardiac size is normal. Mediastinal contours are normal. There is no evidence for pulmonary edema. IMPRESSION: No acute cardiopulmonary findings. ACT 112: Negative or not required by law. Electronically signed by: Alonzo Tijerina M.D. 04/21/2021 6:39 AM Gallbladder Ultrasound 04/21/21 05:43 US gallbladder CLINICAL HISTORY: Right upper quadrant abdominal pain. COMPARISON STUDY: No previous studies for comparison. FINDINGS: There is coarsening of hepatic echotexture. No hepatic lesions are identified. There is mild intra and extrahepatic biliary ductal dilatation. The common bile duct measures 9 mm in caliber. There are gallstones within the gallbladder. Gallbladder is distended. Sonographic Andrews sign could not be assessed in this patient. Gallbladder wall is slightly thickened with possible gallbladder wall edema. Echogenic foci with comet tail artifact within the gallbladder wall suggests adenomyomatosis. Pancreas is obscured. There is no r ight hydronephrosis. IMPRESSION: 1. Cholelithiasis, mild gallbladder distention and mild gallbladder wall thickening. Acute cholecystitis cannot be excluded. A hepatobiliary scan could be obtained if indicated. 2. Mild intra and extrahepatic biliary ductal dilatation. Correlation with liver function tests is recommended. 3. Coarsening of hepatic echotexture which raises the possibility of diffuse liver disease. ACT 112: Negative or not required by law. Electronically signed by: Alonzo Tijerina M.D. 04/21/2021 6:39 AM Code Status & VTE Plan VTE Prophylaxis Plan VTE Prophylaxis will be ordered: Yes Supervising Physician Co-Signing Physician Notes History and physical exam performed by me Detailed by Joanne CABRERA 70-year-old female with PMH migraines, paranoid schizophrenia who presents to the ED for evaluation of epigastric pain that started yesterday. Has been having intermitting abdominal (epigastrium and upper abd pain) since associated with nausea/vomiting after taking peptobismol Currently has no pain. Labs notable for elevated AST of 136 Gallbladder ultrasound showed cholelithiasis, mild gallbladder distention and mild gallbladder wall thickening as well as mild intra and extrahepatic biliary ductal dilatation. MRCP showed Anila lithiasis with evidence of acute cholecystitis. No intra or extrahepatic biliary ductal dilatation and no evidence of choledocholithiasis. -Acute calculus cholecystitis Start iv Antibiotics Will appreciate surgery evaluation for possible cholecystectomy. Pain Control Agree with plans as detailed by Jonane CABRERA
--- NOTE | 2021-04-21 09:43 | Gastrointestinal Consultation ---
Date of Consultation April 21, 2021 Assessment & Plan (1) Acute cholecystitis: Acute on chronic cholecystitis with moderately elevated AST but no other LFTs elevation and US suggesting mild biliary ductal dilation but MRCP without any evidence of cholelithiasis. Recommend surgical consult GI will sign off. Please notify us if new GI issues. Present on Admission?: Yes Supervising Physician Co-Signing Physician Notes I have personally seen and examined the patient with DEBORAH Cox. Her note reflects my exam and findings. I agree with her impression and plan. No signs of biliary obstruction. Defer to surgery for lap yady. Jacobo Simpson M.D> History of Present Illness Reason for Consultation: Epigastric pain, ? need for ERCP Requesting Physician: Joanne Lamar NP Attending Physician: [facility] service. History of Present Illness Ms. Izabel Wilson is a 70 yr old female pt with a hx of schizophrenia and migraines who presented to the ED for epigastric pain that began last evening. On arrival, AST is elevated at 136, no other LFTs or lipase elevation. US with gallstones, mild gallbladder wall thickening, mild intra and extrahepatic biliary ductal dilation. HIDA can not be completed until tomorrow. She is seen/examined while she is resting in bed. She is awake, alert, oriented and her pain has subsided. Had one episode of vomiting last night with her pain. She denies any jaundice, fevers, nausea, vomiting. MRCP just results - does not show any evidence of choledocholithiasis but suggests acute/chronic cholecystitis. Allergies Allergy/AdvReac Type Severity Reaction Status Date / Time No Known Allergies Verified 04/21/21 07:30 Home Medications Medication Instructions Recorded Confirmed Type propranolol 40 mg tablet 40 mg PO BID 09/28/19 04/21/21 History risperidone 2 mg tablet 2 mg PO DAILY 09/28/19 04/21/21 History rizatriptan 10 mg tablet 10 mg PO Q2H PRN 09/28/19 04/21/21 History conjugated estrogens [Premarin] 0.15 mg PO DAILY 04/21/21 04/21/21 History Patient History Medical History Migraines Paranoid schizophrenia Surgical History H/O right breast biopsy H/O right knee surgery H/O: hysterectomy S/P foot surgery, left Family History (Updated 04/21/21 @ 09:20 by DEBORAH Adams) Sister Colorectal cancer Father Pancreatic cancer Social History (Updated 04/21/21 @ 09:20 by DEBORAH Adams) Smoking Status: Never smoker Hx Alcohol Use: No Feels Safe at Home: Yes Review of Systems Review of Systems: ROS: Gen: Denies weakness, fevers, weight loss Eyes: No eye redness, or pain, no recent vision changes Resp: No SOB, no cough Cardio: No palpitations/irregular beats, no chest pain GI: + epigastric pain. one episode of vomiting; otherwise (-). : Denies pain on urination Skin: No jaundice, itching or new rashes Physical Exam Constitutional: WD/WN, vitals as above Eyes: PERRL, conjunctivae normal, anicteric sclerae ENMT: external ear and nose normal, oropharynx normal Neck: trachea midline, no thyromegaly Respiratory: normal respiratory effort, lungs clear to auscultation Cardiovascular: RRR, no murmur, no edema Gastrointestinal (Abdomen): Inspection/Auscultation: abdomen normal to inspection and normal bowel sounds; abdomen not distended Percussion/Palpation: + abdomen tender (epigastric and RUQ), + guarding and abdomen soft; abdomen not rigid and no hepatosplenomegaly Musculoskeletal: no cyanosis or clubbing, extremities motor strength 5/5 Skin: no rashes, warm and dry Neurologic: PERRL, EOMI, accommodation nl, no face palsy, no dysarthria Psychiatric: A+Ox3, euthymic affect Lymphatic: no cervical or axillary lymphadenopathy Results & Data ([facility]) Vital Signs (Past 12 Hours) Vital Signs Temp Pulse Resp BP Pulse Ox 04/21/21 09:01 69 21 177/106 H 97 04/21/21 08:01 65 17 136/86 98 04/21/21 07:31 70 17 96 04/21/21 07:01 53 L 20 189/96 H 95 04/21/21 05:37 97 04/21/21 05:31 56 L 21 162/83 H 97 04/21/21 05:24 98 04/21/21 05:23 56 L 20 173/86 H 97 04/21/21 05:11 37.1 C 63 18 166/92 H 98 Laboratory Results WBC 8, Hb 13, Hct 38, plt 191, INR 1.0, Na 140, K 4.4, BUN 18, Cr 0.75, glucose 99. T bili 0.5, AST 136, ALT 76, Alk Phos 82, Lipase 80. Diagnostic Findings Ultrasound: 04/21/21: 1. Cholelithiasis, mild gallbladder distention and mild gallbladder wall thickening. Acute cholecystitis cannot be excluded. A hepatobiliary scan could be obtained if indicated. 2. Mild intra and extrahepatic biliary ductal dilatation. Correlation with liver function tests is recommended. 3. Coarsening of hepatic echotexture which raises the possibility of diffuse liver disease. MRCP 04/21/21: 1. Cholelithiasis with evidence of acute cholecystitis. 2. No intra or extrahepatic biliary ductal dilatation is identified and there is no evidence of choledocholithiasis.
--- NOTE | 2021-04-21 10:36 | Magnetic Resonance Report ---
MRCP CLINICAL HISTORY: Right-sided chest pain. Cholelithiasis. Abnormal ultrasound. COMPARISON STUDY: Abdominal ultrasound dated 04/21/2021. TECHNIQUE: Abdominal MRCP is performed utilizing various T2-weighted sequences in the axial and coron al planes. IV contrast was not administered for this examination. 3-D reformats were created and asse ssed. FINDINGS: The gallbladder is distended and there are numerous gallstones. The gallbladder wall is thickened and edematous. Findings are typical for acute cholecystitis. There is no intra or extrahepatic biliary d uctal dilatation. The common bile duct measures up to 5.5 mm in diameter. No intraluminal filling def ects are identified to suggest choledocholithiasis. The pancreatic duct is normal in caliber. The unenhanced liver, spleen, adrenal glands, kidneys, and pancreas are grossly unremarkable. There i s no abdominal ascites. The abdominal aorta is normal in caliber. No bowel obstruction is identified. There is no pleural effusion. IMPRESSION: 1. Cholelithiasis with evidence of acute cholecystitis. 2. No intra or extrahepatic biliary ductal dilatation is identified and there is no evidence of yady docholithiasis. Electronically signed by: Reji King M.D. 04/21/2021 10:35 AM
[2021-04-21] MEDS ORDERED: CARBAMIDE PEROXIDE 6.5% 15 ML BTL OT PRN (11:54)
--- NOTE | 2021-04-21 12:10 | Surgery Consultation ---
Date of Consultation April 21, 2021 Assessment & Plan (1) Acute cholecystitis: pt is a 70 naeem-old female who was admitted to hospital for acute RUQ pain, IMP: acute cholecystitis, cholelithiasis Plan, I recommend to do laparoscopic cholecystectomy, possible open or cholangiogram,tomorrow, D/W benefits, risks and alternatives of the surgery, the risks - infection, bleeding, injury other organs, may need ERCP, WA, DVT, stroke, , pt understood, she agrees with the surgery, I answered all questions, Full liquid diet now, NPO after MN, Hold heparin after MN, IV antibiotic Present on Admission?: Yes (2) Cholelithiasis: History of Present Illness Attending Physician: Aileen Edge MD History of Present Illness Chief Complaint: Epigastric pain Primary Care Provider: Matthew Hampton MD 70-year-old female with PMH migraines, paranoid schizophrenia, other problems listed below who presents to the ED for evaluation of epigastric pain. Patient reports she ate fried fish for dinner last evening around 7:00, and then around 1030 she developed a severe epigastric cramping. She reports pain radiated out to both sides of her abdomen. She took Pepto-Bismol which made her nauseous and she had vomiting after. Pain subsided however returned around 4 AM. Patient then presented to the ED for further evaluation. Patient reports having 2 normal bowel movements overnight. Denies diarrhea, bright red bleeding per rectum, dark tarry stools. No hematemesis or coffee-ground emesis. Denies fevers and chills. No chest pain or shortness of breath. Denies lightheadedness, dizziness, diaphoresis, syncopal events. No urinary symptoms. In the ED, gallbladder ultrasound shows cholelithiasis, mild gallbladder distention and mild gallbladder wall thickening. Acute cholecystitis cannot be excluded, Mild intra and extrahepatic biliary ductal dilatation. Patient is afebrile, no leukocytosis. AST 136. Patient was given IVF. She denies any discomfort currently. I ( Ti Shelton MD) got a call for consult acute cholecystitis with cholelithiasis, I reviewed pt's H/P, labs, U/S, MRCP with pt, Allergies Allergy/AdvReac Type Severity Reaction Status Date / Time No Known Allergies Verified 04/21/21 07:30 Home Medications Medication Instructions Recorded Confirmed Type propranolol 40 mg tablet 40 mg PO BID 09/28/19 04/21/21 History risperidone 2 mg tablet 2 mg PO DAILY 09/28/19 04/21/21 History rizatriptan 10 mg tablet 10 mg PO Q2H PRN 09/28/19 04/21/21 History conjugated estrogens [Premarin] 0.15 mg PO DAILY 04/21/21 04/21/21 History Past Med/Surg History Medical History Migraines Paranoid schizophrenia Surgical History H/O right breast biopsy H/O right knee surgery H/O: hysterectomy S/P foot surgery, left Family History (Updated 04/21/21 @ 09:20 by DEBORAH Adams) Sister Colorectal cancer Father Pancreatic cancer Social History (Updated 04/21/21 @ 09:20 by DEBORAH Adams) Smoking Status: Never smoker Hx Alcohol Use: No Feels Safe at Home: Yes Review of Systems Review of Systems: ROS per HPI, all other systems reviewed and negative Results & Data Results & Data ([facility]) Vital Signs (Past 12 Hours) Vital Signs Temp Pulse Resp BP Pulse Ox 04/21/21 08:01 65 17 136/86 98 04/21/21 07:31 70 17 96 04/21/21 07:01 53 L 20 189/96 H 95 04/21/21 05:37 97 04/21/21 05:31 56 L 21 162/83 H 97 04/21/21 05:24 98 04/21/21 05:23 56 L 20 173/86 H 97 04/21/21 05:11 37.1 C 63 18 166/92 H 98 Laboratory Results Short CBC 04/21/21 Range/Units 05:24 WBC 8.02 (4.8-10.8) K/uL Hgb 13.4 (12.0-16.0) g/dL Hct 38.8 (37-47) % Plt Count 191 (130-400) K/uL BMP 04/21/21 05:24 Sodium 140 Potassium 4.4 Chloride 105 Carbon Dioxide 29 BUN 18 Creatinine 0.75 Glucose 99 Calcium 8.7 Cardiac Enzymes 04/21/21 Range/Units 05:24 Troponin I < 0.015 (0-0.045) ng/ml Liver Function 04/21/21 Range/Units 05:24 Total Bilirubin 0.5 (0.2-1) mg/dl AST 136 H (15-37) U/L ALT 76 (12-78) U/L Alkaline Phosphatase 82 (45-117) U/L Albumin 3.3 L (3.4-5.0) gm/dl Diagnostic Findings Chest X-Ray 04/21/21 05:28 XR chest 1V portable CLINICAL HISTORY: Chest Pain COMPARISON STUDY: Chest radiograph the 2009. FINDINGS: Lung volumes are normal. Lungs are clear. There is no pneumothorax or pleural effusion. Cardiac size is normal. Mediastinal contours are normal. There is no evidence for pulmonary edema. IMPRESSION: No acute cardiopulmonary findings. ACT 112: Negative or not required by law. Electronically signed by: Alonzo Tijerina M.D. 04/21/2021 6:39 AM Gallbladder Ultrasound 04/21/21 05:43 US gallbladder CLINICAL HISTORY: Right upper quadrant abdominal pain. COMPARISON STUDY: No previous studies for comparison. FINDINGS: There is coarsening of hepatic echotexture. No hepatic lesions are identified. There is mild intra and extrahepatic biliary ductal dilatation. The common bile duct measures 9 mm in caliber. There are gallstones within the gallbladder. Gallbladder is distended. Sonographic Andrews sign could not be assessed in this patient. Gallbladder wall is slightly thickened with possible gallbladder wall edema. Echogenic foci with comet tail artifact within the gallbladder wall suggests adenomyomatosis. Pancreas is obscured. There is no right hydronephrosis. IMPRESSION: 1. Cholelithiasis, mild gallbladder distention and mild gallbladder wall thickening. Acute cholecystitis cannot be excluded. A hepatobiliary scan could be obtained if indicated. 2. Mild intra and extrahepatic biliary ductal dilatation. Correlation with liver function tests is recommended. 3. Coarsening of hepatic echotexture which raises the possibility of diffuse liver disease. Allergies Allergy/AdvReac Type Severity Reaction Status Date / Time No Known Allergies Verified 04/21/21 07:30 Home Medications Medication Instructions Recorded Confirmed Type propranolol 40 mg tablet 40 mg PO BID 09/28/19 04/21/21 History risperidone 2 mg tablet 2 mg PO DAILY 09/28/19 04/21/21 History rizatriptan 10 mg tablet 10 mg PO Q2H PRN 09/28/19 04/21/21 History conjugated estrogens [Premarin] 0.15 mg PO DAILY 04/21/21 04/21/21 History Patient History Medical History Migraines Paranoid schizophrenia Surgical History H/O right breast biopsy H/O right knee surgery H/O: hysterectomy S/P foot surgery, left Family History (Updated 04/21/21 @ 09:20 by DEBORAH Adams) Sister Colorectal cancer Father Pancreatic cancer Social History (Updated 04/21/21 @ 09:20 by DEBORAH Adams) Smoking Status: Never smoker Hx Alcohol Use: No Feels Safe at Home: Yes Review of Systems Review of Systems: All systems reviewed & are unremarkable except as noted in HPI & below Constitutional: as per Subjective / HPI Eyes: as per Subjective / HPI Ear, Nose, Mouth, Throat: as per Subjective / HPI Respiratory: as per Subjective / HPI Cardiovascular: as per Subjective / HPI Gastrointestinal: as per Subjective / HPI billiary colic Genitourinary: as per Subjective / HPI Musculoskeletal: as per Subjective / HPI Integumentary: as per Subjective / HPI Neurologic: as per Subjective / HPI Psychiatric: as per Subjective / HPI paranoid schizophrenia Endocrine: as per Subjective / HPI Hematologic / Lymphatic: as per Subjective / HPI Allergy / Immunological: as per Subjective / HPI Physical Exam Constitutional: WD/WN, vitals as above well developed and well nourished Eyes: PERRL, conjunctivae normal, anicteric sclerae ENMT: external ear and nose normal, oropharynx normal Neck: trachea midline, no thyromegaly Respiratory: normal respiratory effort, lungs clear to auscultation normal respiratory effort Cardiovascular: RRR, no murmur, no edema Rate/Rhythm: regular rate and regular rhythm Gastrointestinal (Abdomen): normal bowel sounds, soft, nontender, no hepatosplenomegaly Percussion/Palpation: abdomen soft mild tenderness at RUQ, no rebound pain, no distend Musculoskeletal: no cyanosis or clubbing, extremities motor strength 5/5 Neurologic: awake Psychiatric: Orientation: alert and oriented x 3 Results & Data ([facility]) Vital Signs (Past 12 Hours) Vital Signs Temp Pulse Resp BP Pulse Ox 04/21/21 09:30 57 L 16 165/86 H 95 04/21/21 09:01 69 21 177/106 H 97 04/21/21 08:01 65 17 136/86 98 04/21/21 07:31 70 17 96 04/21/21 07:01 53 L 20 189/96 H 95 04/21/21 05:37 97 04/21/21 05:31 56 L 21 162/83 H 97 04/21/21 05:24 98 04/21/21 05:23 56 L 20 173/86 H 97 04/21/21 05:11 37.1 C 63 18 166/92 H 98 Laboratory Results Abnormal lab results 04/21/21 04/21/21 Range/Units 05:24 05:24 RBC 4.02 L (4.2-5.4) M/uL [place] # (Auto) 0.65 H (0.11-0.59) K/uL BUN/Creatinine Ratio 23.7 H (10-20) AST 136 H (15-37) U/L Albumin 3.3 L (3.4-5.0) gm/dl Diagnostic Findings MRCP CLINICAL HISTORY: Right-sided chest pain. Cholelithiasis. Abnormal ultrasound. COMPARISON STUDY: Abdominal ultrasound dated 04/21/2021. TECHNIQUE: Abdominal MRCP is performed utilizing various T2-weighted sequences i n the axial and coronal planes. IV contrast was not administered for this examination. 3-D reformats were created and assessed. FINDINGS: The gallbladder is distended and there are numerous gallstones. The gallbladder wall is thickened and edematous. Findings are typical for acute cholecystitis. There is no intra or extrahepatic biliary ductal dilatation. The common bile duct measures up to 5.5 mm in diameter. No intraluminal filling defects are identified to suggest choledocholithiasis. The pancreatic duct is normal in caliber. The unenhanced liver, spleen, adrenal glands, kidneys, and pancreas are grossly unremarkable. There is no abdominal ascites. The abdominal aorta is normal in caliber. No bowel obstruction is identified. There is no pleural effusion. IMPRESSION: 1. Cholelithiasis with evidence of acute cholecystitis. 2. No intra or extrahepatic biliary ductal dilatation is identified and there is no evidence of choledocholithiasis. US gallbladder CLINICAL HISTORY: Right upper quadrant abdominal pain. COMPARISON STUDY: No previous studies for comparison. FINDINGS: There is coarsening of hepatic echotexture. No hepatic lesions are identified. There is mild intra and extrahepatic biliary ductal dilatation. The common bile duct measures 9 mm in caliber. There are gallstones within the gallbladder. Gallbladder is distended. Sonographic Andrews sign could not be assessed in this patient. Gallbladder wall is slightly thickened with possible gallbladder wall edema. Echogenic foci with comet tail artifact within the gallbladder wall suggests adenomyomatosis. Pancreas is obscured. There is no right hydronephrosis.
[2021-04-21] MEDS ORDERED: LACTATED RINGER'S 1,000 ML IV SCH (12:30)
--- NOTE | 2021-04-21 12:41 | Electrocardiogram Report ---
Test Reason : Blood Pressure : / mmHG Vent. Rate : 056 BPM Atrial Rate : 056 BPM P-R Int : 146 ms QRS Dur : 088 ms QT Int : 432 ms P-R-T Axes : -02 057 026 degrees QTc Int : 416 ms Sinus bradycardia Otherwise normal ECG When compared with ECG of 30-MAY-2015 11:05, No significant change was found Confirmed by Aries Hollis ([id number]) on 04/21/2021 12:40:48 PM Referred By: REFERRED SELF Confirmed By:Art Hollis
[2021-04-21] MEDS: D5W AND NSS 1,000 ML IV SCH (12:46)
[2021-04-21] MEDS: cefOXitin 2,000 MG in DEXTROSE 5% 50 ML IV SCH ×2 (12:50→18:30)
[2021-04-21] MEDS: PROPRANOLOL HCL 20 MG TAB PO SCH ×2 (12:52→21:33)
[2021-04-21] MEDS: risperiDONE 2 MG TABLET PO SCH (12:52)
[2021-04-21] MEDS: metroNIDAZOLE 500 MG/100 ML BAG IV SCH ×2 (14:49→21:27)
--- NOTE | 2021-04-21 15:26 | Anesthesiology Consultation ---
Date of Service April 21, 2021 The patient has schizophrenia but is alert and competent to sign her own consent as per her nurse. Assessment & Plan (1) Encounter for pre-operative examination: Chart Review Chart Review: Acceptable Risk for Surgery and Patient NOT seen in Pre Admission Testing Consults Requested none History Surgery Operation Date: 04/22/21 12:30 Proposed Procedures p Laparoscopic Cholecystectomy - Ti Shelton MD Height/Weight Height: 5 ft 1 in Weight: 69.3 kg Allergies Allergy/AdvReac Type Severity Reaction Status Date / Time No Known Allergies Verified 04/21/21 07:30 Medications Home Medications Medication Instructions Recorded Confirmed Last Taken propranolol 40 mg tablet 40 mg PO BID 09/28/19 04/21/21 04/21/21 risperidone 2 mg tablet 2 mg PO DAILY 09/28/19 04/21/21 04/21/21 rizatriptan 10 mg tablet 10 mg PO Q2H PRN 09/28/19 04/21/21 Unknown conjugated estrogens [Premarin] 0.15 mg PO DAILY 04/21/21 04/21/21 04/21/21 Active Medications Generic Name Dose Route Start Last Admin Trade Name Freq PRN Reason Stop Dose Admin Carbamide Peroxide 5 drops 04/21/21 11:54 04/21/21 12:58 Carbamide Peroxide 6.5% 15 Ml Btl OT 04/24/21 11:53 5 drops BID PRN Administration Ear wax Dextrose/Sodium Chloride 1,000 mls @ 125 mls/hr 04/21/21 11:27 04/21/21 14:49 D5w And Nss IV 05/21/21 11:26 0 mls/hr .Q8H MEGHAN Infusion Cefoxitin Sodium 2,000 mg/ 60 mls @ 100 mls/hr 04/21/21 12:15 04/21/21 13:26 Dextrose IV 05/01/21 12:14 Infused Q6H MEGHAN Infusion Metronidazole 500 mg in 100 mls @ 100 mls/hr 04/21/21 14:00 04/21/21 14:49 Flagyl IV 05/01/21 13:59 100 mls/hr Q8H MEGHAN Administration Propranolol HCl 40 mg 04/21/21 11:27 04/21/21 12:52 Propranolol Hcl 20 Mg Tab PO 05/21/21 11:26 40 mg BID MEGHAN Administration Risperidone 2 mg 04/21/21 11:27 04/21/21 12:52 Risperidone 2 Mg Tablet PO 05/21/21 11:26 2 mg DAILY MEGHAN Administration Past Medical History Medical History Migraines Paranoid schizophrenia Past Family History Family History Sister Colorectal cancer Father Pancreatic cancer Past Surgical History Surgical History H/O right breast biopsy H/O right knee surgery H/O: hysterectomy S/P foot surgery, left Social History Smoking Status: Never smoker Hx Alcohol Use: No Hx Substance Use: No Physical Exam Vital Signs Last Vital Signs Temp 37 C 04/21/21 11:05 Pulse 82 04/21/21 12:45 Resp 16 04/21/21 11:05 BP 165/99 H 04/21/21 12:45 Pulse Ox 96 04/21/21 11:05 Testing Laboratory Results 04/21/21 05:24 04/21/21 05:24 APTT 25.5 Seconds (21.0-31.0) 04/21/21 05:24 Electrocardiogram Date: 04/21/21 Findings: + SB @ (56) Chest X-Ray Date: 04/21/21 R chest 1V portable CLINICAL HISTORY: Chest Pain COMPARISON STUDY: Chest radiograph the 2009. FINDINGS: Lung volumes are normal. Lungs are clear. There is no pneumothorax or pleural effusion. Cardiac size is normal. Mediastinal contours are normal. There is no evidence for pulmonary edema. IMPRESSION: No acute cardiopulmonary findings. ACT 112: Negative or not required by law. Electronically signed by: Alonzo Tijerina M.D. 04/21/2021 6:39 AM Dictated: 04/21/21 0639Transcribed: 04/21/21 0639
[2021-04-22] MEDS: cefOXitin 2,000 MG in DEXTROSE 5% 50 ML IV SCH ×4 (00:06→19:30)
[2021-04-22] MEDS: metroNIDAZOLE 500 MG/100 ML BAG IV SCH ×2 (06:14→22:46)
[2021-04-22 06:22] LABS: Hematocrit (blood only) 39.1 % (37-47); Hemoglobin 13.2 g/dL (12.0-16.0); Mean Corpuscular Hemoglobin 33.3 pg (25-34); Mean Corpuscular Hgb Conc 33.8 g/dL (32-36); Mean Corpuscular Volume 98.7 fL (80-100); Mean Platelet Volume 10.1 fL (7.4-10.4); Platelet Count 191 K/uL (130-400); RDW Coefficient of Variation 12.4 % (11.5-14.5); RDW Standard Deviation 44.9 fL (36.4-46.3); Red Blood Count 3.96 M/uL (4.2-5.4); White Blood Count 5.79 K/uL (4.8-10.8)
[2021-04-22 06:55] LABS: Albumin Level 3.2 gm/dl (3.4-5.0); BUN Creatinine Ratio 12.9 (10-20); Calcium 8.2 mg/dl (8.5-10.1); Creatinine Clr Calc Pharmacy 66.6 ml/min; Est GFR (African American) 100.7 ml/min; Est GFR (Non-African American) 86.9 ml/min
[2021-04-22 07:03] LABS: Albumin Globulin Ratio 0.9 (0.9-2); Bilirubin,Total 0.6 mg/dl (0.2-1); Globulin 3.6 gm/dl (2.5-4.0); Total Protein 6.8 gm/dl (6.4-8.2)
[2021-04-22] MEDS: ACETAMINOPHEN 325 MG TAB PO PRN (07:53)
[2021-04-22] MEDS: risperiDONE 2 MG TABLET PO SCH (07:54)
[2021-04-22] MEDS: PROPRANOLOL HCL 20 MG TAB PO SCH ×2 (07:57→20:26)
[2021-04-22] MEDS: D5W AND NSS 1,000 ML IV SCH ×2 (09:38→22:46)
[2021-04-22] MEDS ORDERED: RIZATRIPTAN BENZOATE 10 MG TAB PO PRN ×2 (11:03→15:47)
--- NOTE | 2021-04-22 11:03 | Hospitalist Progress Note ---
Date of Service April 22, 2021 Assessment & Plan (1) Biliary colic: Patient presented from home with reports of epigastric pain that began last evening In the ED, gallbladder ultrasound shows cholelithiasis, mild gallbladder distention and mild gallbladder wall thickening. Acute cholecystitis cannot be excluded, Mild intra and extrahepatic biliary ductal dilatation. Afebrile, no leukocytosis. Mild elevation in AST at 136, normal lipase HIDA scan ordered however due to scheduling, cannot be completed until tomorrow afternoon MRCP showed cholelithiasis with evidence of acute cholecystitis. No intra or extrahepatic biliary ductal dilatation and no evidence of choledocholithiasis. Continue antibiotics Surgery plan for cholecystectomy today Follow up post op (2) Paranoid schizophrenia: Continue Risperdal (3) Migraines: Continue propanolol Continue rizatriptan prn migraine 10mg q2h PRN migraine (not more than 2 doses in 24h) (4) DVT prophylaxis: SCDs for now Admission and Anticipated Discharge Date Admission Date: April 21, 2021 Subjective 70-year-old female with PMH migraines, paranoid schizophrenia who presents to the ED for evaluation of epigastric pain that the day before presentation Found to have acute calculous cholecystitis Patient seen and examined this morning No abdominal pain today Reports on left hand pain at site of previously infiltrated line that has been removed and her usual migraine headaches Denied all other symptoms Review of Systems Review of Systems: All systems reviewed & are unremarkable except as noted in Subjective Physical Exam Constitutional: + well hydrated; no acute distress Eyes: PERRL, conjunctivae normal, anicteric sclerae ENMT: external ear and nose normal, oropharynx normal Respiratory: normal respiratory effort, lungs clear to auscultation Cardiovascular: RRR, no murmur, no edema Gastrointestinal (Abdomen): normal bowel sounds, soft, nontender, no hepatosplenomegaly Musculoskeletal: no cyanosis or clubbing, extremities motor strength 5/5 Neurologic: PERRL, EOMI, accommodation nl, no face palsy, no dysarthria Psychiatric: A+Ox3, euthymic affect Results & Data Results & Data ([facility]) Vital Signs (Past 12 Hours) Vital Signs Temp Pulse Resp BP Pulse Ox 04/22/21 07:00 36.7 C 58 L 16 159/81 H 95 Laboratory Results Abnormal lab results 04/22/21 04/22/21 Range/Units 06:06 06:06 RBC 3.96 L (4.2-5.4) M/uL Chloride 111 H (98-107) mmol/L Glucose 117 H (70-99) mg/dl Calcium 8.2 L (8.5-10.1) mg/dl AST 198 H (15-37) U/L ALT 263 H (12-78) U/L Alkaline Phosphatase 123 H (45-117) U/L Albumin 3.2 L (3.4-5.0) gm/dl
[2021-04-22] MEDS ORDERED: fentaNYL citrate 100 MCG/2 ML VIAL ONE ×2 (11:13→13:56)
[2021-04-22] MEDS ORDERED: MIDAZOLAM HCL 1 MG/ML 2ML VIAL ONE (11:13)
[2021-04-22] MEDS ORDERED: ACETAMINOPHEN 1000 MG/100 ML IV IV ONE (11:19)
[2021-04-22] MEDS ORDERED: BUPIVACAINE 0.5 % 5 MG/1 ML MPF 30ML VIAL ONE (12:40)
[2021-04-22] MEDS ORDERED: LIDOCAINE 1% LOCAL 20 ML VIAL ONE (12:40)
[2021-04-22] MEDS ORDERED: BACITRACIN OINT 15 GM TUBE ONE (12:40)
[2021-04-22] MEDS ORDERED: ROCURONIUM BROMIDE 10 MG/ML 5 ML VIAL IV ONE (13:14)
[2021-04-22] MEDS ORDERED: DEXAMETHASONE SOD INJ 4 MG/ML VIAL ONE (13:14)
[2021-04-22] MEDS ORDERED: LIDOCAINE 2% 2 ML VIAL/AMP(20MG/ML) INFIL ONE (13:14)
[2021-04-22] MEDS ORDERED: PROPOFOL IV EMULSION 10 MG/ML 20 ML VIAL IV ONE (13:14)
[2021-04-22] MEDS ORDERED: ONDANSETRON INJ 2 MG/ML 2 ML VIAL ONE (13:14)
[2021-04-22] MEDS ORDERED: ceFAZolin 2000MG 2,000 MG/15 ML SYR IV ONE (13:19)
--- NOTE | 2021-04-22 13:19 | History & Physical Bridge Note ---
Date of Service April 22, 2021 History & Physical Bridge Note I have examined the patient, reviewed the History & Physical and in the interval since the performance of the History & Physical I have noted the following changes of clinical significance: no changes noted Supervising Physician Co-Signing Physician Notes History and physical exam performed by me Detailed by Joanne CABRERA 70-year-old female with PMH migraines, paranoid schizophrenia who presents to the ED for evaluation of epigastric pain that started yesterday. Has been having intermitting abdominal (epigastrium and upper abd pain) since associated with nausea/vomiting after taking peptobismol Currently has no pain. Labs notable for elevated AST of 136 Gallbladder ultrasound showed cholelithiasis, mild gallbladder distention and mild gallbladder wall thickening as well as mild intra and extrahepatic biliary ductal dilatation. MRCP showed Anila lithiasis with evidence of acute cholecystitis. No intra or extrahepatic biliary ductal dilatation and no evidence of choledocholithiasis. -Acute calculus cholecystitis Start iv Antibiotics Will appreciate surgery evaluation for possible cholecystectomy. Pain Control Agree with plans as detailed by Joanne CABRERA
[2021-04-22] MEDS ORDERED: ceFAZolin 2,000 MG/15 ML IV PUSH IV ONE (13:21)
[2021-04-22] MEDS ORDERED: fentaNYL citrate 100 MCG/2 ML VIAL IV PRN (13:50)
[2021-04-22] MEDS ORDERED: ONDANSETRON INJ 2 MG/ML 2 ML VIAL IV PRN (13:50)
[2021-04-22] MEDS ORDERED: ATROPINE SULFATE 0.1 MG/ML 10ML SYR IV PRN (13:50)
[2021-04-22] MEDS ORDERED: ePHEDrine sulfate 50 MG/ML AMP IV PRN (13:50)
[2021-04-22] MEDS ORDERED: GLYCOPYRROLATE 0.2 MG/ML VIAL ONE (13:54)
[2021-04-22] MEDS ORDERED: LABETALOL HCL IV 5 MG/ML 20ML IV ONE (13:59)
--- NOTE | 2021-04-22 14:20 | Post Operative Brief Note ---
Immediate Post Op Note v1 Date of Surgery April 22, 2021 Pre & Post Diagnosis Operation Date: 04/22/21 12:30 Pre-Op Diagnosis: BILIARY COLIC, acute cholecystitis, cholelithiasis Post-Op Diagnosis: BILIARY COLIC, acute cholecystitis, cholelithiasis I identified the patient and participated in the time-out.: Yes Procedure Operation Date: 04/22/21 12:30 Actual Procedures p Laparoscopic Cholecystectomy - Ti Shelton MD Surgeon Ti Shelton MD Online Media Buyer DERRICK Campo Estimated Blood Loss 10 Findings Consistent with Post-Op Diagnosis Fluids 800ml Specimens gallbladder Anesthesia Type General Complications none Disposition Accompanied Patient To Recovery: No Disposition: Recovery Room Overlapping Procedure I was immediately available: during the entire case.
--- NOTE | 2021-04-22 15:28 | Anesthesiology Progress Note ---
Date of Service April 22, 2021 Anesthesia Post Procedure Vital Signs Vital Signs: Temp Pulse Pulse Resp BP BP Pulse Ox 04/22/21 15:17 36.4 C L 58 L 15 174/94 H 94 04/22/21 15:05 72 14 161/91 H 96 04/22/21 14:55 76 12 141/91 H 99 04/22/21 14:45 36.2 C L 82 16 158/96 H 99 04/22/21 12:55 36.6 C 63 18 178/88 H 95 04/22/21 07:00 36.7 C 58 L 16 159/81 H 95 04/21/21 22:56 36.9 C 50 L 16 146/78 H 96 04/21/21 16:12 36.8 C 104 H 16 152/90 H 95 Pain Intensity Chest: Pain Intensity: 4 Transfer of Care Handoff Completed per policy Notes Mental Status: alert / awake / arousable Patient Amnestic to Procedure: Yes Nausea / Vomiting: adequately controlled Pain: adequately controlled Airway Patency, RR, SpO2: stable & adequate BP & HR: stable & adequate Hydration State: stable & adequate Anesthetic Complications: no major complications apparent
[2021-04-22] MEDS ORDERED: oxyCODONE/ACETAMINOPHEN 5mg/325mg TAB PO PRN (15:47)
[2021-04-22] MEDS ORDERED: HYDROmorphone INJ 1 MG/ML SYRINGE IV PRN (15:47)
[2021-04-22] MEDS: LACTATED RINGER'S 1,000 ML IV SCH ×2 (17:42→23:27)
[2021-04-23] MEDS: cefOXitin 2,000 MG in DEXTROSE 5% 50 ML IV SCH ×2 (00:04→05:20)
[2021-04-23] MEDS: ACETAMINOPHEN 325 MG TAB PO PRN (00:11)
[2021-04-23 06:23] LABS: Hematocrit (blood only) 37.7 % (37-47); Hemoglobin 12.7 g/dL (12.0-16.0); Immature Granulocytes # (auto) 0.02 K/uL (0.00-0.02); Immature Granulocytes % (auto) 0.2 %; Lymphocytes # (auto) 1.63 K/uL (1.2-3.4); Lymphocytes % (auto) 17.6 %; Mean Corpuscular Hemoglobin 33.5 pg (25-34); Mean Corpuscular Hgb Conc 33.7 g/dL (32-36); Mean Corpuscular Volume 99.5 fL (80-100); Mean Platelet Volume 10.6 fL (7.4-10.4); Monocytes # (auto) 0.49 K/uL (0.11-0.59); Monocytes % (auto) 5.3 %; Neutrophils # (auto) 7.11 K/uL (1.4-6.5); Neutrophils % (auto) 76.9 %; Platelet Count 201 K/uL (130-400); RDW Coefficient of Variation 12.2 % (11.5-14.5); RDW Standard Deviation 44.3 fL (36.4-46.3); Red Blood Count 3.79 M/uL (4.2-5.4); White Blood Count 9.25 K/uL (4.8-10.8)
[2021-04-23 06:44] LABS: Albumin Level 2.8 gm/dl (3.4-5.0); BUN Creatinine Ratio 10.3 (10-20); Calcium 8.7 mg/dl (8.5-10.1); Creatinine Clr Calc Pharmacy 49.2 ml/min; Est GFR (African American) 69.9 ml/min; Est GFR (Non-African American) 60.3 ml/min; Potassium 4.2 mmol/L (3.5-5.1)
[2021-04-23 06:47] LABS: Albumin Globulin Ratio 0.8 (0.9-2); Bilirubin,Total 0.5 mg/dl (0.2-1); Globulin 3.4 gm/dl (2.5-4.0); Total Protein 6.2 gm/dl (6.4-8.2)
--- NOTE | 2021-04-23 07:55 | Operative Report (OR) ---
DATE OF SURGERY: 04/22/2021. PREOPERATIVE DIAGNOSES: Acute cholecystitis, cholelithiasis. POSTOPERATIVE DIAGNOSES: Acute cholecystitis, cholelithiasis. OPERATION: Laparoscopic cholecystectomy. SURGEON: Ti Shelton MD. PAID SEARCH SPECIALIST: DERRICK Campo. ANESTHESIA: General. ESTIMATED BLOOD LOSS: About 10 mL. FINDINGS: Acute cholecystitis, cholelithiasis. COMPLICATIONS: None. INDICATIONS: This is 70 years old female who was admitted to the hospital for acute cholecystitis wi th cholelithiasis and I recommended to do the laparoscopic cholecystectomy, possible open, possible c holangiogram. I did talk to the patient about benefits and risks, alternate procedure. I indicated t he risks may include, but not limited to, such as bleeding, infection, injury to other organs, bile l eak, may need an ERCP, myocardial infarction, DVT, stroke, and even . Patient understands, she signed informed consent, and I answered all questions. DETAILS OF PROCEDURE: After I identified the patient and verified the procedure, we brought the rosalia ent to the OR, put the patient in the supine position. The patient received SCD on bilateral legs to prevent DVT. Also the patient received 2 grams IV for prophylactic antibiotics. The patient receiv ed general anesthesia without difficulty. Her abdomen was prepped and draped in routine sterile [facility] ion. After time-out, I injected the local anesthesia by using 1% lidocaine mixed with 0.5% Marcaine just above the umbilicus and made a small incision just above the umbilicus. Opened fascia and opened peritoneum and under direct vision put the Carolynn trocar in, connected CO2 to create a pneumoperiton eum with flow rate at 6 liters per minute, pressure normal at 40 mmHg. Once we got the nice pneumope ritoneum, we put the camera in and looked around the abdomen, it showed normal finding on the liver. However, the gallbladder shows gallbladder wall thickening, edema, confirmed diagnosis of acute chol ecystitis. Once confirmed diagnosis, we put another three 5 mm trocars on the right upper quadrant. Once our trocar was in we put the grasper to hold the base of the gallbladder, put in direction to t he diaphragm. Another grasper hold the pouch of the gallbladder, put the latter to expunge the trian gle of Calot. The cystic duct was identified, mobilized. I put two 5 mm metal clips on the proximal cystic duct and one on the distal cystic duct. Used a scissor for transection of the cystic duct, re checked and no bile leak. The cystic artery was identified, mobilized, and I put a two 5 mm metal cl ips on the proximal cystic artery and one on the distal cystic artery. I used scissors for transecti on of the cystic artery, rechecked and no active bleeding. Then we used the Bovie to take down the g allbladder from the liver bed, rechecked and no active bleeding, no bile leak from the liver bed. Th en, we removed the gallbladder through the catch bag and reinserted the Carolynn trocar in and connecte d to CO2 to create pneumoperitoneum. We again looked around the abdomen. No active bleeding, no marco a e leak from the liver bed. Then we removed all trocars under direct vision. No active bleeding from the trocar site. Pneumoperitoneum was released. Then I closed the umbilical incision fascial layer by using 0 Vicryl [id number] x2, closed subcutaneous layer by using 2-0 Vicryl interrupted, lucas sed skin by use of 4-0 Vicryl continuous running, closed another three 5 mm trocar site skin only by using 4-0 Vicryl. Then we put the dressing on. The patient tolerated the procedure well. All instr ument, needle and sponge counts were correct x2 at the end of the case. Patient transferred to [facility] room in stable condition. After the procedure, I did talk to the patient about the OR findings a nd procedure we did. The patient understands. The specimen was sent to pathology. The geological survey field assistant, Zee was necessary for this procedure. Her role was to hold of the camera, r etraction and exposure. Job ID: [id number]
[2021-04-23] MEDS ORDERED: ESTROGENS, CONJUGATED 0.3 MG TAB PO SCH (09:00)
--- NOTE | 2021-04-23 10:37 | Hospitalist Progress Note ---
Date of Service April 23, 2021 Assessment & Plan (1) Acute cholecystitis: POD #1 lap yady. She is doing well without complications. Tolerating PO, LFTs are improved. OK to dc from surgery standpoint. (2) Paranoid schizophrenia: appears stable, Continue Risperdal per home regimen (3) Migraines: Continue propanolol for prophylaxis Continue rizatriptan prn migraine 10mg q2h PRN migraine (not more than 2 doses in 24h) (4) DVT prophylaxis: SCDs/ambulation Full Code Dispo-ok for discharge from surgery perspective. She is mentating and ambulating at baseline and tolerating regular diet prior to leaving. Pain is controlled and she will be seen in the surgery office in two weeks for post-op wound check. Halle Daniels DO [facility]ist Admission and Anticipated Discharge Date Admission Date: April 21, 2021 Subjective 70 yo F presented with biliary colic s/p lap yady yesterday who is doing well post-operatively today. She denies pain, but reports a generalized soreness. She is tolerating liquid diet and requesting to advance this. She denies chest pain, shortness of breath or other issues at this time. Review of Systems Review of Systems: All systems reviewed & are unremarkable except as noted in Subjective Physical Exam Physical Exam: CONSTITUTIONAL: WNWD, vitals as above, generally well- appearing EYES: normal conjunctivae, no scleral icterus ENT: external ear and nose normal, MMM RESPIRATORY: clear to auscultation bilaterally, no crackles, rales or wheezes, normal respiratory effort CARDIOVASCULAR: regular rate and rhythm, S1 and 2 heard without murmurs, gallops or rubs, no JVD, no peripheral edema GASTROINTESTINAL: soft, nontender but reports generalized soreness, multiple closed laparoscopic incision sites that are well-healing, no erythema, nondistended. MUSCULOSKELETAL: strength 5/5 throughout, head is normocephalic and atraumatic, moves around the bed with ease. SKIN: warm and dry, incision as above. NEUROLOGIC: CN 2-12 grossly intact, no sensory deficit, normal cognition, normal speech, no gross focal deficits. PSYCHIATRIC: alert cooperative and oriented to person, place and time. Results & Data Results & Data ([facility]) Vital Signs (Past 12 Hours) Vital Signs Temp Pulse Pulse Resp BP Pulse Ox 04/23/21 07:50 36.8 C 75 18 155/94 H 95 04/23/21 03:20 36.4 C L 67 16 133/82 91 Laboratory Results Short CBC 04/23/21 Range/Units 05:38 WBC 9.25 (4.8-10.8) K/uL Hgb 12.7 (12.0-16.0) g/dL Hct 37.7 (37-47) % Plt Count 201 (130-400) K/uL BMP 04/23/21 05:38 Sodium 140 Potassium 4.2 Chloride 108 H Carbon Dioxide 24 BUN 10 Creatinine 0.96 Glucose 136 H Calcium 8.7 Liver Function 04/23/21 Range/Units 05:38 Total Bilirubin 0.5 (0.2-1) mg/dl AST 62 H (15-37) U/L ALT 151 H (12-78) U/L Alkaline Phosphatase 100 (45-117) U/L Albumin 2.8 L (3.4-5.0) gm/dl Medications Administered Current Inpatient Medications Acetaminophen (Acetaminophen 325 Mg Tab) 650 mg PO Q4H PRN PRN Reason: pain/fever Stop: 05/21/21 11:26 Last Admin: 04/23/21 00:11 Dose: 650 mg Documented by: Carbamide Peroxide (Carbamide Peroxide 6.5% 15 Ml Btl) 5 drops OT BID PRN PRN Reason: Ear wax Stop: 04/24/21 11:53 Last Admin: 04/21/21 12:58 Dose: 5 drops Documented by: Estrogens Conjugated (Estrogens, Conjugated 0.3 Mg Tab) 0.15 mg PO DAILY [facility] Stop: 05/23/21 08:59 Last Admin: 04/23/21 10:41 Dose: Not Given Documented by: Hydromorphone HCl (Hydromorphone Inj 1 Mg/Ml Syringe) 1 mg IV Q3H PRN PRN Reason: Pain Stop: 05/06/21 15:46 Oxycodone/Acetaminophen (Oxycodone/Acetaminophen 5mg/325mg Tab) 1 tab PO Q4H PRN PRN Reason: Pain Stop: 05/06/21 15:46 Last Admin: 04/22/21 18:34 Dose: 1 tab Documented by: Propranolol HCl (Propranolol Hcl 20 Mg Tab) 40 mg PO BID MEGHAN Stop: 05/21/21 11:26 Last Admin: 04/23/21 10:40 Dose: 40 mg Documented by: Risperidone (Risperidone 2 Mg Tablet) 2 mg PO DAILY MEGHAN Stop: 05/21/21 11:26 Last Admin: 04/23/21 10:40 Dose: 2 mg Documented by: Rizatriptan Benzoate (Rizatriptan Benzoate 10 Mg Tab) 10 mg PO Q2H PRN PRN Reason: Migraine Headache Stop: 05/22/21 11:02
[2021-04-23] MEDS: risperiDONE 2 MG TABLET PO SCH (10:40)
[2021-04-23] MEDS: PROPRANOLOL HCL 20 MG TAB PO SCH (10:40)
--- NOTE | 2021-04-23 11:01 | Surgery Progress Note ---
Date of Service April 23, 2021 Assessment & Plan (1) Acute cholecystitis: POD # 1 s/p laparoscopic cholecystectomy -avss - minimal postop pain - no n/v - LFTS improved, juana smith wnl Plan: doing well from surgical standpoint for discharge discharge instructions reviewed and provided advance to regular diet f/u surgical office in 2 weeks has seen patient, agrees with above Admission and Anticipated Discharge Date Admission Date: April 21, 2021 Subjective feeling good this morning no nausea or vomiting had a good breakfast minimal pain Physical Exam Constitutional: WD/WN, vitals as above Respiratory: normal respiratory effort; no respiratory distress and no labored breathing Gastrointestinal (Abdomen): Inspection/Auscultation: abdomen normal to inspection; abdomen not distended Skin: no rashes, warm and dry Psychiatric: A+Ox3, euthymic affect Results & Data ([facility]) Vital Signs (Past 12 Hours) Vital Signs Temp Pulse Pulse Resp BP Pulse Ox 04/23/21 07:50 36.8 C 75 18 155/94 H 95 04/23/21 03:20 36.4 C L 67 16 133/82 91 Laboratory Results 04/23/21 04/23/21 Range/Units 05:38 05:38 WBC 9.25 (4.8-10.8) K/uL RBC 3.79 L (4.2-5.4) M/uL Hgb 12.7 (12.0-16.0) g/dL Hct 37.7 (37-47) % MCV 99.5 (80-100) fL MCH 33.5 (25-34) pg MCHC 33.7 (32-36) g/dL RDW Std Deviation 44.3 (36.4-46.3) fL RDW Coeff of Margot 12.2 (11.5-14.5) % Plt Count 201 (130-400) K/uL MPV 10.6 H (7.4-10.4) fL Immature Gran % (Auto) 0.2 % Neut % (Auto) 76.9 % Lymph % (Auto) 17.6 % [place] % (Auto) 5.3 % Eos % (Auto) 0.0 % Baso % (Auto) 0.0 % Neut # (Auto) 7.11 H (1.4-6.5) K/uL Lymph # (Auto) 1.63 (1.2-3.4) K/uL [place] # (Auto) 0.49 (0.11-0.59) K/uL Eos # (Auto) 0.00 (0-0.5) K/uL Baso # (Auto) 0.00 (0-0.2) K/uL Immature Gran # (Auto) 0.02 (0.00-0.02) K/uL Sodium 140 (136-145) mmol/L Potassium 4.2 (3.5-5.1) mmol/L Chloride 108 H (98-107) mmol/L Carbon Dioxide 24 (21-32) mmol/L Anion Gap 7.0 (3-11) BUN 10 (7-18) mg/dl Creatinine 0.96 (0.6-1.2) mg/dl Est Cr Clr Drug Dosing 49.2 ml/min Est GFR ( Amer) 69.9 ml/min Est GFR (Non-Af Amer) 60.3 ml/min BUN/Creatinine Ratio 10.3 (10-20) Glucose 136 H (70-99) mg/dl Calcium 8.7 (8.5-10.1) mg/dl Total Bilirubin 0.5 (0.2-1) mg/dl AST 62 H (15-37) U/L ALT 151 H (12-78) U/L Alkaline Phosphatase 100 (45-117) U/L Total Protein 6.2 L (6.4-8.2) gm/dl Albumin 2.8 L (3.4-5.0) gm/dl Globulin 3.4 (2.5-4.0) gm/dl Albumin/Globulin Ratio 0.8 L (0.9-2)
--- NOTE | 2021-04-23 12:17 | Discharge Summary ---
Date of Service April 23, 2021 Admission HPI Per Admitting Provider 70-year-old female with PMH migraines, paranoid schizophrenia, other problems listed below who presents to the ED for evaluation of epigastric pain. Patient reports she ate fried fish for dinner last evening around 7:00, and then around 1030 she developed a severe epigastric cramping. She reports pain radiated out to both sides of her abdomen. She took Pepto-Bismol which made her nauseous and she had vomiting after. Pain subsided however returned around 4 AM. Patient then presented to the ED for further evaluation. Patient reports having 2 normal bowel movements overnight. Denies diarrhea, bright red bleeding per rectum, dark tarry stools. No hematemesis or coffee-ground emesis. Denies fevers and chills. No chest pain or shortness of breath. Denies lightheadedness, dizziness, diaphoresis, syncopal events. No urinary symptoms. In the ED, gallbladder ultrasound shows cholelithiasis, mild gallbladder distention and mild gallbladder wall thickening. Acute cholecystitis cannot be excluded, Mild intra and extrahepatic biliary ductal dilatation. Patient is afebrile, no leukocytosis. AST 136. Patient was given IVF. She denies any discomfort currently. Admission Exam Per Admitting Provider Constitutional: WD/WN, vitals as above Eyes: PERRL, conjunctivae normal, anicteric sclerae ENMT: external ear and nose normal, oropharynx normal Respiratory: normal respiratory effort, lungs clear to auscultation Cardiovascular: Rate/Rhythm: regular rate and regular rhythm Vessels: normal peripheral pulses Extremities: no edema Gastrointestinal (Abdomen): normal bowel sounds, soft, nontender, no hepatosplenomegaly Musculoskeletal: no cyanosis or clubbing, extremities motor strength 5/5 Skin: no rashes, warm and dry Neurologic: PERRL, EOMI, accommodation nl, no face palsy, no dysarthria Psychiatric: A+Ox3, euthymic affect Principal Diagnosis Acute calculus cholecystitis Discharge Data Allergies Allergy/AdvReac Type Severity Reaction Status Date / Time No Known Allergies Verified 04/21/21 07:30 Consultations 04/21/21 07:44 ED Decision to Admit Stat 04/21/21 11:27 Consult Gastroenterology Routine Consult General Surgery Routine Procedures Performed Operation Date: 04/22/21 12:30 Actual Procedures p Laparoscopic Cholecystectomy - Ti Shelton MD Ordered Studies Laboratory Results WBC 9.25 K/uL (4.8-10.8) 04/23/21 05:38 RBC 3.79 M/uL (4.2-5.4) L 04/23/21 05:38 Hgb 12.7 g/dL (12.0-16.0) 04/23/21 05:38 Hct 37.7 % (37-47) 04/23/21 05:38 MCV 99.5 fL (80-100) 04/23/21 05:38 MCH 33.5 pg (25-34) 04/23/21 05:38 MCHC 33.7 g/dL (32-36) 04/23/21 05:38 RDW Std Deviation 44.3 fL (36.4-46.3) 04/23/21 05:38 RDW Coeff of Margot 12.2 % (11.5-14.5) 04/23/21 05:38 Plt Count 201 K/uL (130-400) 04/23/21 05:38 MPV 10.6 fL (7.4-10.4) H 04/23/21 05:38 Immature Gran % (Auto) 0.2 % 04/23/21 05:38 Neut % (Auto) 76.9 % 04/23/21 05:38 Lymph % (Auto) 17.6 % 04/23/21 05:38 [place] % (Auto) 5.3 % 04/23/21 05:38 Eos % (Auto) 0.0 % 04/23/21 05:38 Baso % (Auto) 0.0 % 04/23/21 05:38 Neut # (Auto) 7.11 K/uL (1.4-6.5) H 04/23/21 05:38 Lymph # (Auto) 1.63 K/uL (1.2-3.4) 04/23/21 05:38 [place] # (Auto) 0.49 K/uL (0.11-0.59) 04/23/21 05:38 Eos # (Auto) 0.00 K/uL (0-0.5) 04/23/21 05:38 Baso # (Auto) 0.00 K/uL (0-0.2) 04/23/21 05:38 Immature Gran # (Auto) 0.02 K/uL (0.00-0.02) 04/23/21 05:38 APTT 25.5 Seconds (21.0-31.0) 04/21/21 05:24 PTT Ratio 1.0 04/21/21 05:24 Sodium 140 mmol/L (136-145) 04/23/21 05:38 Potassium 4.2 mmol/L (3.5-5.1) 04/23/21 05:38 Chloride 108 mmol/L (98-107) H 04/23/21 05:38 Carbon Dioxide 24 mmol/L (21-32) 04/23/21 05:38 Anion Gap 7.0 (3-11) 04/23/21 05:38 BUN 10 mg/dl (7-18) 04/23/21 05:38 Creatinine 0.96 mg/dl (0.6-1.2) 04/23/21 05:38 Est Cr Clr Drug Dosing 49.2 ml/min 04/23/21 05:38 Est GFR ( Amer) 69.9 ml/min 04/23/21 05:38 Est GFR (Non-Af Amer) 60.3 ml/min 04/23/21 05:38 BUN/Creatinine Ratio 10.3 (10-20) 04/23/21 05:38 Glucose 136 mg/dl (70-99) H 04/23/21 05:38 Calcium 8.7 mg/dl (8.5-10.1) 04/23/21 05:38 Total Bilirubin 0.5 mg/dl (0.2-1) 04/23/21 05:38 AST 62 U/L (15-37) H 04/23/21 05:38 ALT 151 U/L (12-78) H 04/23/21 05:38 Alkaline Phosphatase 100 U/L (45-117) 04/23/21 05:38 Troponin I < 0.015 ng/ml (0-0.045) 04/21/21 05:24 Total Protein 6.2 gm/dl (6.4-8.2) L 04/23/21 05:38 Albumin 2.8 gm/dl (3.4-5.0) L 04/23/21 05:38 Globulin 3.4 gm/dl (2.5-4.0) 04/23/21 05:38 Albumin/Globulin Ratio 0.8 (0.9-2) L 04/23/21 05:38 Lipase 80 U/L (73-393) 04/21/21 05:24 Specimen Hemolysis 04/21/21 05:24 COVID-19 Eval Order Covid19 at [facility] 04/21/21 08:15 SARS-CoV-2 (PCR) NEGATIVE (Negative) 04/21/21 08:15 Impressions Chest X-Ray 04/21/21 05:28 XR chest 1V portable CLINICAL HISTORY: Chest Pain COMPARISON STUDY: Chest radiograph the 2009. FINDINGS: Lung volumes are normal. Lungs are clear. There is no pneumothorax or pleural effusion. Cardiac size is normal. Mediastinal contours are normal. There is no evidence for pulmonary edema. IMPRESSION: No acute cardiopulmonary findings. ACT 112: Negative or not required by law. Electronically signed by: Alonzo Tijerina M.D. 04/21/2021 6:39 AM Gallbladder Ultrasound 04/21/21 05:43 US gallbladder CLINICAL HISTORY: Right upper quadrant abdominal pain. COMPARISON STUDY: No previous studies for comparison. FINDINGS: There is coarsening of hepatic echotexture. No hepatic lesions are identified. There is mild intra and extrahepatic biliary ductal dilatation. The common bile duct measures 9 mm in caliber. There are gallstones within the gallbladder. Gallbladder is distended. Sonographic Andrews sign could not be assessed in this patient. Gallbladder wall is slightly thickened with possible gallbladder wall edema. Echogenic foci with comet tail artifact within the gallbladder wall suggests adenomyomatosis. Pancreas is obscured. There is no right hydronephrosis. IMPRESSION: 1. Cholelithiasis, mild gallbladder distention and mild gallbladder wall thickening. Acute cholecystitis cannot be excluded. A hepatobiliary scan could be obtained if indicated. 2. Mild intra and extrahepatic biliary ductal dilatation. Correlation with liver function tests is recommended. 3. Coarsening of hepatic echotexture which raises the possibility of diffuse liver disease. ACT 112: Negative or not required by law. Electronically signed by: Alonzo Tijerina M.D. 04/21/2021 6:39 AM Cholangiopancreatography MRI 04/21/21 08:50 MRCP CLINICAL HISTORY: Right-sided chest pain. Cholelithiasis. Abnormal ultrasound. COMPARISON STUDY: Abdominal ultrasound dated 04/21/2021. TECHNIQUE: Abdominal MRCP is performed utilizing various T2-weighted sequences in the axial and coronal planes. IV contrast was not administered for this examination. 3-D reformats were created and assessed. FINDINGS: The gallbladder is distended and there are numerous gallstones. The gallbladder wall is thickened and edematous. Findings are typical for acute cholecystitis. There is no intra or extrahepatic biliary ductal dilatation. The common bile duct measures up to 5.5 mm in diameter. No intraluminal filling defects are identified to suggest choledocholithiasis. The pancreatic duct is normal in caliber. The unenhanced liver, spleen, adrenal glands, kidneys, and pancreas are grossly unremarkable. There is no abdominal ascites. The abdominal aorta is normal in caliber. No bowel obstruction is identified. There is no pleural effusion. IMPRESSION: 1. Cholelithiasis with evidence of acute cholecystitis. 2. No intra or extrahepatic biliary ductal dilatation is identified and there is no evidence of choledocholithiasis. Electronically signed by: Reji King M.D. 04/21/2021 10:35 AM Hospital Course (1) Acute cholecystitis: The patient is a 70-year-old female who presented to the emergency department with epigastric abdominal pain for approximately 1 day. Clinical picture was consistent with biliary colic and an ultrasound was performed that was concerning for gallbladder wall thickening. She was placed on normal saline drip and admitted to the hospitalist service for further work-up and management. AST was 136, ALT was 76, total bilirubin 0.5 on admission lipase was 80. HIDA scan was ordered to help rule out acute cholecystitis however due to scheduling this could not be completed until the following day. An MRCP was therefore ordered due to biliary ductal dilation and elevated AST. GI was consulted. MRCP revealed cholelithiasis with evidence of acute cholecystitis. Surgery was consulted for laparoscopic cholecystectomy which was performed on 04/22 for the treatment of acute calculus cholecystitis. This was performed by Dr. Shelton, and there were no postoperative complications. She did receive perioperative cefoxitin and remained hemodynamically stable and a afebrile throughout her hospital stay. White blood cell count was normal throughout her hospital stay. At time of discharge she was hemodynamically stable and afebrile and tolerating a regular diet. She was sent home in stable condition with close primary care follow-up recommended and a 2-week postoperative wound check with general surgery recommended. Total Time Total Time Spent Total Time Spent (In Minutes): 60 Total Time Includes: Examination of the Patient, Discharge Planning, Medication Reconciliation and Communication With Other Providers Discharge Plan Discharge Items Patient Disposition: Home - Self-Care Reason For Visit: BILIARY COLIC Discharge Diagnosis: Acute calculous cholecystitis Condition on Discharge: Good Activity: Per Instructions section Non-emergency contact: Primary Care Provider and Surgeon Call non-emergency contact if: you have any medication questions, your symptoms worsen, your pain is not controlled, your pain is worsening, your pain is unusual for you, your pain is concerning for you, you have a fever, your wound has increased redness, your wound has increased drainage and your wound pain has increased Follow-up/Referrals: Matthew Hampton MD [Primary Care Provider] - Diet: Regular Addtl Attending Provider Instructions: Please take all medications as recommended on dischare Addtl Plant Maintenance Technician Provider Instructions: Post-Surgical ~Discharge Instructions Activity Recommendations: - lifting limitation: (20 pounds for 4 weeks), - exercise/sex/sports limit: (nonstrenuous for 2 weeks), - driving or machine use limit: (none for 1 week or until pain free and no longer taking narcotic pain medication), - Shower/bathe limit: (may shower in 3 days, no submerging underwater for 2 weeks) Diet: - Resume previous diet SPECIAL CARE INSTRUCTIONS: - May shower in 3 days. Sponge bath and wash hair in meantime. After 3 days, remove outer dressings and let water run over area and pat dry. - Leave steri strips on for one week and then remove. They may fall off before and that is okay. - Call the surgeon's office with any questions or concerns - - (ex. temperature higher than 101 degrees F, excessive bleeding or pain). MEDICATIONS: - Resume previous medications unless instructed otherwise by your surgeon. - May alternate extra strength Tylenol and Ibuprofen as needed for mild pain during the day. -650 mg Tylenol every 6 hours as needed - Ibuprofen 600 mg every 6 hours as needed (take with food) - Percocet 1 every 4 hours, as needed for moderate to severe pain FOLLOW UP VISIT: - If not already scheduled, please call the office to schedule a two week follow-up appointment. Office number Pending Studies at Discharge: Yes Stand-Alone Forms: [facility] Medications and DC Order Prescriptions: New oxycodone-acetaminophen [Percocet] 5-325 mg Tablet 1 tab PO Q4H PRN (Reason: severe pain) Qty: 15 RF: 0 ibuprofen 600 mg tablet 600 mg PO Q8H PRN (Reason: fever or pain) Qty: 20 RF: 0 Continued propranolol 40 mg tablet 40 mg PO BID RF: 0 risperidone 2 mg tablet 2 mg PO DAILY RF: 0 rizatriptan 10 mg tablet 10 mg PO Q2H PRN (Reason: Headache) RF: 0 Premarin 0.3 mg tablet 0.15 mg PO DAILY RF: 0 Discharge Orders: Discharge Order (Routine); Ordered 04/23/21 Ordered By: Halle Daniels Admission Data Admit Date/Time: 04/21/21 08:07 Attending Provider: Halle Daniels Admit Provider: Aileen Edge I. Primary Care Provider: Matthew Hampton Other Providers: Aileen Edge I. ; Jacobo Simpson ; Aries Shelton
== END 2021-04-23 14:30 | disposition home or self-care (01) ==
LOC: 3W 05:03 → ED 05:03 → SUATTDRO 08:07 → 3W 10:57